=== PATIENT | female | born 1955 | race Caucasian/White ===

== ENCOUNTER 2022-10-19 22:44 | Inpatient (IN) | payer MEDICARE, SELFPAY ==
--- NOTE | 2022-10-19 07:48 | ECG_ITS ---
APPROVED REPORT Exam: Resting ECG HR:83 bpm ECG Measurements Heart Rate 83 AXES DE 157 P 66 QRSd 88 QRS 15 QT 407 T 15 QTc 447 Conclusion SINUS RHYTHM NORMAL ECG UNCONFIRMED REPORT Electronically signed by : Saleem Mg MD 10/20/2022 09:22:44
[2022-10-19 22:38] VITALS: BP 160/93; PULSE 89; RESP 17; TEMP 36.4; O2SAT 91
[2022-10-19 22:42] VITALS: BP 153/92; PULSE 105; RESP 20; O2SAT 95
[2022-10-19 22:46] VITALS: PULSE 100; BMI 28.9
--- NOTE | 2022-10-19 23:03 | XR_ITS ---
PROCEDURE INFORMATION: Exam: XR Chest Exam date and time: 10/19/2022 11:10 PM Age: 67 years old Clinical indication: Condition or disease; Lung condition and disease; Hypoxia; Patient HX: Former smoker TECHNIQUE: Imaging protocol: Radiologic exam of the chest. Views: 1 view. COMPARISON: No relevant prior studies available. FINDINGS: Lungs: Unremarkable. No consolidation. Pleural spaces: Unremarkable. No pleural effusion. No pneumothorax. Heart/Mediastinum: Unremarkable. No cardiomegaly. Vasculature: Unremarkable. Bones/joints: Unremarkable. IMPRESSION: No acute findings.
[2022-10-19 23:05] VITALS: O2SAT 94
--- NOTE | 2022-10-19 23:15 | PC.NURSE ---
pt arrived to floor via stretcher @[id number]
[2022-10-19 23:30] VITALS: BP 150/80; PULSE 84; RESP 18; O2SAT 94
--- NOTE | 2022-10-19 23:46 | EXP.HP ---
History of Present Illness *Admission Date: 10/19/22 *Reason for visit:: NSTEMI *History of present illness: This is a 67-year-old female with no significant past medical history who presents as a transfer from [facility] for further evaluation of NSTEMI. She reportedly presented to the outside hospital yesterday for complaints feeling generally unwell. She was diagnosed at that time with influenza. She was treated with DuoNeb, steroids and Tamiflu and discharged home. She presented back to the outside hospital today with complaints of dyspnea on exertion and orthopnea that is not typical to her baseline. She denies any past medical history but states that she is also not seen a doctor for a physical in some time. She does report half pack a day smoking history but has not had a cigarette since last Sunday. She was also noted at the outside hospital to have significant hypertension with systolic above 200. She only endorses orthopnea and dyspnea on exertion with any movement but denies chest pain, palpitations, fever. Emergency department work-up at outside hospital significant for elevated high-sensitivity troponin of 500 with uptrend to 700. BNP of 326, chest x-ray and CT pulmonary scan negative for any edema, effusion or PE. She does have a mild EUGENE with creatinine of 1.3, likely undiagnosed CKD. No ischemia noted on EKG, mild T wave inversions in V3 Due to the above-mentioned complaints, she was transferred here for further evaluation management. Cardiology was consulted prior to her transfer here and agrees with admission. She is admitted to the hospitalist service.. [facility] Disclaimer: The information contained in this section may have been updated after the patient was seen, as this information can be updated by other users. Surgical History H/O knee surgery History of tubal ligation Family History Other Diabetes Family history of acute congestive heart failure Family history of myocardial infarction Lung cancer Social History Smoking Status: Current every day smoker alcohol intake: never current occupational status: retired Travel in the last 8 weeks: None Review of Systems Constitutional Constitutional: Reports chills and Reports fatigue Eyes Eyes: Reports system reviewed and no additional complaints, except as documented ENT Ears, Nose, Mouth, and Throat: Reports system reviewed and no additional complaints, except as documented *Cardiovascular Cardiovascular: Reports system reviewed and no additional complaints, except as documented *Respiratory Respiratory: Reports system reviewed and no additional complaints, except as documented *Gastrointestinal Gastrointestinal: Reports system reviewed and no additional complaints, except as documented *Genitourinary Genitourinary: Reports system reviewed and no additional complaints, except as documented *Musculoskeletal Musculoskeletal: Reports system reviewed and no additional complaints, except as documented Integumentary/Breasts Skin/Breast: Reports system reviewed and no additional complaints, except as documented *Neurologic Neurologic: Reports system reviewed and no additional complaints, except as documented Endocrine Endocrine: Reports fatigue Meds Home Medications and Allergies Home Medications Medication Instructions Recorded Confirmed Type ascorbic acid (vitamin C) 500 mg 500 mg PO DAILY Supplement 10/19/22 10/19/22 History tablet (Vitamin C) aspirin 81 mg capsule 81 mg PO DAILY Blood thinner 10/19/22 10/19/22 History multivitamin 1 tab PO DAILY Supplement 10/19/22 10/19/22 History New Prescriptions to Start Prescriptions: Allergies Allergy/AdvReac Type Severity Reaction Status Date / Time No Known Allergies Allergy Verified 10/19/22 23:03 Exam Data
[2022-10-19 23:58] LABS: Coronavirus 19, PCR Not Detected (NotDetected); Influenza B, PCR Not Detected (NotDetected)
[2022-10-19 23:59] LABS: Basophils % 0.3 % (0.1-2.0); Eosinophils % 0.3 % (0.1-12.0); Hematocrit 38.5 % (37.0-47.0); Hemoglobin 12.4 g/dL (12.2-16.2); Lymphocytes # 1.2 K/mm3 (0.7-4.5); Lymphocytes % 9.4 % (10-50); Mean Corpuscular HGB Conc 32.2 g/dL (31.8-35.4); Mean Corpuscular Hemoglobin 29.9 pg (27.0-31.2); Mean Corpuscular Volume 92.8 fl (81-99); Mean Platelet Volume 8.6 fl (7.4-10.4); Monocytes # 0.3 K/mm3 (0.1-1.0); Monocytes % 2.3 % (1.7-9.3); Neutrophils # 10.8 K/mm3 (1.8-7.8); Neutrophils % 87.8 % (37.0-80.0); Platelet Count 931 K/mm3 (142-424); Red Blood Count 4.15 M/mm3 (4.20-5.40); Red Cell Distribution Width 13.6 % (11.5-17.5); White Blood Count 12.3 K/mm3 (4.8-10.8)
[2022-10-20] VITALS (19 sets, daily range): BP systolic 103–148; BP diastolic 50–76; PULSE 57–86; RESP 16–22; TEMP 36.3–36.7; O2SAT 93–100; BMI 28.5
--- NOTE | 2022-10-20 | IR_ITS ---
APPROVED REPORT Patient Location: Inpatient Administrative And Program Specialist: MILLIE Oscar RT (R) PROCEDURES Left heart catheterization Left ventriculogram Selective coronary angiogram INDICATION Acute non-ST ovation myocardial infarction Informed consent was obtained prior to the procedure. COMPLICATIONS None Estimated Blood Loss: Less than 10 ml TECHNIQUE One percent lidocaine used to anesthetize the right anterior aspect of the wrist. The right radial artery was accessed via the Seldinger technique. A 6 Macedonian sheath was placed in the right radial artery. 2.5 mg of verapamil, 800 mcg of nitroglycerin, 1mg Lidocaine and 5000 U Heparin were given through the arterial sheath. The papa catheter was also used to perform selective coronary angiogram. At the end of the procedure the sheath was removed good hemostasis was achieved using Traclet band, patient was transferred to the postop holding area in stable condition. ANGIOGRAPHIC RESULTS The left main artery Normal The left anterior descending artery Normal The circumflex artery Normal The right coronary artery Large dominant with proximal mild vascular ectasia The GAUTHIER ventriculogram reveals Not performed The left ventricular end-diastolic pressure Not measured IMPRESSION Mild vascular ectasia in the proximal dominant right coronary which is clinically insignificant with remaining coronary arteries being normal Likely mild form of myocarditis secondary to acute viral illness PLAN 1. Supportive care 2. Check echocardiogram to better evaluate ejection fraction Electronically signed by : Spenser Erickson MD 10/20/2022 12:10:35
[2022-10-20 00:02] LABS: MANUAL DIFFERENTIAL MANUAL DIFFERENTIAL (MANUAL DIFF)
[2022-10-20 00:07] LABS: Alanine Aminotransferase 46 U/L (12-78); Albumin Level 4.5 g/dl (3.5-5.0); Albumin/Globulin Ratio 1.4 (1.1-1.8); Alkaline Phosphatase 102 U/L (38-126); Anion Gap 18.1 mEq/L (5-15); Aspartate Amino Transferase 48 U/L (14-36); Bilirubin,Total 0.2 mg/dl (0.2-1.3); Blood Urea Nitrogen 16 mg/dl (7-17); Calcium 9.6 mg/dl (8.4-10.2); Carbon Dioxide 21 mmol/L (22.0-30.0); Chloride 101 mmol/L (98-107); Chol/HDL Ratio 4.2 (1-3.5); Cholesterol 173 mg/dl (140-200); Estimated Glomerular Filt Rate 45 ml/min (>60); GFR (African American) 54 ML/MIN (>60); Globulin 3.2 g/dL (1.3-3.2); Glucose 188 mg/dl (74-100); HDL Cholesterol 41 mg/dl (40-60); Potassium 4.1 mmoL/L (3.5-5.1); Sodium 136 mmol/L (136-145); Total Protein,Serum 7.7 g/dl (6.3-8.2); Triglycerides 148 mg/dl (30-150); VLDL Cholesterol 30 mg/dL (0-40)
[2022-10-20 00:12] LABS: D-Dimer 0.63 ug/mL (0.0-0.5); Hemoglobin A1C 5.3 % (4.0-6.0)
[2022-10-20 00:17] LABS: Direct LDL Cholesterol 83.31 mg/dL (100-129)
[2022-10-20 00:20] LABS: Influenza A, PCR Detected (NotDetected)
[2022-10-20 00:21] LABS: NT Pro Brain Natriuretic Pep. 7680 pg/mL (0-125)
[2022-10-20 00:23] LABS: Troponin I 0.49 ng/ml (0.00-0.034)
[2022-10-20 00:48] LABS: Lymphocytes % 12 % (10-50); Monocytes % 3 % (2-9); Neutrophils % 85 % (42-76); Platelet Estimate Marked Increase; RBC Morphology Normal; Total Cells Counted 100
[2022-10-20 03:03] LABS: Microscopic, Urine URINE MICROSCOPIC (MICROSCOPIC)
[2022-10-20 03:18] LABS: Appearance,Urine CLEAR (Clear); Bilirubin,Urine Negative (Negative); Blood, Urine Negative (Negative); Color,Urine YELLOW (Yellow); Glucose,Urine (UA) Negative (Negative); Ketones,Urine Negative (Negative); Leukocyte Esterase,Urine TRACE (Negative); Nitrate,Urine Negative (Negative); PH,Urine 5.5 (5.0-8.5); Protein,Urine Negative (Negative); Urobilinogen,Urine 0.2 EU/dl (0.2)
[2022-10-20 03:29] LABS: Troponin I 0.37 ng/ml (0.00-0.034)
[2022-10-20 03:40] LABS: Bacteria,Urine Trace /lpf; WBC,Urine Occasional #/hpf (0-3)
--- NOTE | 2022-10-20 04:10 | PC.NURSE ---
Pt BP has remained stable this shift. Nitro paste in place. She states that her soa has improved overnight. She has voided per BSC with 1400 ml out thus far. She is currently on 2L O2 NC with sats low to mid 90s. She is currently NPO. call light within reach.
[2022-10-20 05:56] LABS: Basophils # 0.1 K/mm3 (0-0.2); Basophils % 0.4 % (0.1-2.0); Eosinophils # 0.1 K/mm3 (0.0-0.4); Eosinophils % 0.5 % (0.1-12.0); Hematocrit 36.6 % (37.0-47.0); Hemoglobin 11.7 g/dL (12.2-16.2); Lymphocytes # 1.4 K/mm3 (0.7-4.5); Lymphocytes % 11.7 % (10-50); Mean Corpuscular HGB Conc 32.1 g/dL (31.8-35.4); Mean Corpuscular Hemoglobin 30.5 pg (27.0-31.2); Mean Corpuscular Volume 94.8 fl (81-99); Mean Platelet Volume 8.8 fl (7.4-10.4); Monocytes # 0.5 K/mm3 (0.1-1.0); Monocytes % 4.1 % (1.7-9.3); Neutrophils # 10.1 K/mm3 (1.8-7.8); Neutrophils % 83.2 % (37.0-80.0); Platelet Count 869 K/mm3 (142-424); Red Blood Count 3.85 M/mm3 (4.20-5.40); Red Cell Distribution Width 13.6 % (11.5-17.5); White Blood Count 12.2 K/mm3 (4.8-10.8)
[2022-10-20 06:04] LABS: Chloride 103 mmol/L (98-107); Potassium 4.2 mmoL/L (3.5-5.1); Sodium 138 mmol/L (136-145)
[2022-10-20 06:06] LABS: Alanine Aminotransferase 30 U/L (12-78); Albumin Level 3.9 g/dl (3.5-5.0); Albumin/Globulin Ratio 1.3 (1.1-1.8); Alkaline Phosphatase 86 U/L (38-126); Anion Gap 14.2 mEq/L (5-15); Aspartate Amino Transferase 36 U/L (14-36); Bilirubin,Total 0.2 mg/dl (0.2-1.3); Blood Urea Nitrogen 18 mg/dl (7-17); Calcium 9.3 mg/dl (8.4-10.2); Carbon Dioxide 25 mmol/L (22.0-30.0); Creatinine Clearance Estimated 48 mL/min (50-200); Estimated Glomerular Filt Rate 41 ml/min (>60); GFR (African American) 49 ML/MIN (>60); Glucose 127 mg/dl (74-100); Magnesium 1.8 mg/dl (1.6-2.3); Total Protein,Serum 6.9 g/dl (6.3-8.2)
[2022-10-20 06:07] LABS: Phosphorous 3.2 mg/dl (2.5-4.5)
[2022-10-20 06:26] LABS: Troponin I 0.33 ng/ml (0.00-0.034)
--- NOTE | 2022-10-20 06:31 | PC.NURSE ---
Critical lab value troponin 0.33 reported to Mirielle Meier NP
[2022-10-20 06:38] LABS: Thyroid Stimulating Hormone 0.93 uIU/mL (0.465-4.68)
[2022-10-20 07:02] LABS: Free T4 (Free Thyroxine) 1.02 ng/dl (0.78-2.19)
--- NOTE | 2022-10-20 07:25 | HMH.PHAINT1 ---
Pharmacy Intervention Comments: MEDICATION RECONCILIATION COMPLETED ON PATIENT USING EXTERNAL FILL HISTORY FROM PHARMACY. -ASHLEY LAROSE, EMELID
--- NOTE | 2022-10-20 09:33 | EXP.CARD.CON ---
History of Present Illness History of Present Illness Consult date: 10/20/22 Requesting physician: Jorge Lorenzo Consult reason: shortness of breath Chief complaint: SOA History of present illness: This is a 67-year-old white female who was transferred here from [facility] secondary to a non-ST elevation myocardial infarction. The patient reports that she presented to [facility] on Sunday after taking a shower and being significantly short of breath which was very unusual for her. She states that she was diagnosed with influenza and started on steroids, Tamiflu and duo nebs. She states that she was sent home and felt fine the rest of that day. On she states that she took Tamiflu that morning and around on she took steroids and her symptoms significantly worsened. She states that she was short of breath with rest and it was worsened with exertion and also had associated orthopnea. She stated that nothing was really helping to improve her symptoms which again was unusual for her. She denied any chest pain or pressure. She went back to the emergency department and a high-sensitivity troponin was obtained and positive. Dr. Erickson was contacted and the patient was transferred here to [facility]. Her troponin is also elevated here this morning. She states that she is still having intermittent episodes of shortness of breath. She denies any chest pain or pressure. She denies any lower extremity edema. She denies any fever, chills, nausea, vomiting, diarrhea. The patient does report that when she went to the hospital on Sunday her blood pressure was 200s/100s in the emergency department there. She states that they did get her blood pressure down and she has had slight elevations in her blood pressure since that time. [facility] Disclaimer: The information contained in this section may have been updated after the patient was seen, as this information can be updated by other users. Medical History EUGENE (acute kidney injury) COPD (chronic obstructive pulmonary disease) case management patient Family history of heart disease HTN (hypertension) Influenza NSTEMI (non-ST elevated myocardial infarction) Tobacco user Surgical History H/O knee surgery History of tubal ligation Family History Other Diabetes Family history of acute congestive heart failure Family history of myocardial infarction Lung cancer Social History Smoking Status: Current every day smoker alcohol intake: never current occupational status: retired Travel in the last 8 weeks: None Review of Systems Review of Systems Review of systems:: pertinent systems reviewed and negative unless documented below Constitutional Constitutional: Reports system reviewed and no additional complaints, except as documented Eyes Eyes: Reports system reviewed and no additional complaints, except as documented ENT Ears, Nose, Mouth, and Throat: Reports system reviewed and no additional complaints, except as documented *Cardiovascular Cardiovascular: Reports system reviewed and no additional complaints, except as documented, Reports dyspnea, Reports dyspnea on exertion and Reports orthopnea *Respiratory Respiratory: Reports system reviewed and no additional complaints, except as documented, Denies chest congestion, Denies cough, Reports dyspnea and Reports dyspnea on exertion *Gastrointestinal Gastrointestinal: Reports system reviewed and no additional complaints, except as documented *Genitourinary Genitourinary: Reports system reviewed and no additional complaints, except as documented *Musculoskeletal Musculoskeletal: Reports system reviewed and no additional complaints, except as documented Integumentary/Breasts Skin/Breast: Reports system reviewed and no lara
--- NOTE | 2022-10-20 12:52 | PC.NURSE ---
pt off unit from [id number] with slab stripper
--- NOTE | 2022-10-20 14:33 | EXP.DC.SUM ---
General Admission date:: 10/19/22 Discharge date: 10/20/22 HPI HPI HPI: This is a 67-year-old female with a significant history of cigarette smoking 1 pack/day for 40 years. She reports no past medical history for cardiovascular disease. She presents as a transfer from [facility] for further evaluation of NSTEMI. She reportedly presented to the outside hospital yesterday for complaints feeling generally unwell. She was diagnosed at that time with influenza. She was treated with DuoNeb, steroids and Tamiflu and discharged home. She presented back to the outside hospital today with complaints of dyspnea on exertion and orthopnea that is not typical to her baseline. She denies any past medical history but states that she is also not seen a doctor for a physical in some time. She does report 1 pack a day smoking history but has not had a cigarette since last Sunday. She was also noted at the outside hospital to have significant hypertension with systolic above 200. She only endorses orthopnea and dyspnea on exertion with any movement but denies chest pain, palpitations, fever. Emergency department work-up at outside hospital significant for elevated high-sensitivity troponin of 500 with uptrend to 700. BNP of 326, chest x-ray and CT pulmonary scan negative for any edema, effusion or PE. She does have a mild EUGENE with creatinine of 1.3, likely undiagnosed CKD. No ischemia noted on EKG, mild T wave inversions in V3. Her platelet count on presentation was greater than 900 consistent with essential thrombocytosis. Her red blood cell count was normal and her hemoglobin is 11.7 with an MCV of 95. Due to the above-mentioned complaints, she was transferred here for further evaluation management. Cardiology was consulted prior to her transfer here and agrees with admission. She is admitted to the hospitalist service. Hospital Course Hospital Course Hospital Course: The patient was admitted to the medical unit with telemetry monitoring. Cardiology was consulted. Laboratory studies were trended including her platelet count that trended downward from 931 to 869 after fluid resuscitation. Her creatinine remained stable and her electrolytes were normal. Her hemoglobin A1c was normal at 5.3%. Her troponin trend remained flat. She tolerated her beta-jose therapy well with no adverse events and reported no further chest pain. Cardiology recommended left heart cath which identified no interventional disease. Her differential diagnoses for NSTEMI includes the possibility of viral induced thrombosis from her essential thrombocytosis. Her 2 daughters were present on day of discharge and we discussed the importance of seeing a manufacturing team member for essential thrombocytosis evaluation, JAK2 testing, possible bone marrow biopsy and discussions concerning hydroxyurea therapy for her presentation to [facility]. She will continue with an aspirin daily and follow-up with cardiology as scheduled. We have discussed stroke symptomatology and reviewed FAST with the importance of seeking immediate medical attention. She is advised to discontinue smoking and seek evaluation from her PCP concerning COPD and current treatment strategies. The patient voices understanding. I spent 35 minutes in [id number] time with the patient and nursing staff concerning the discharge process. We discussed the admitting diagnoses and hospital course. We discussed identified improvement and the patient's desire to be discharged. We reviewed inpatient studies and imaging. The patient voiced understanding on the importance of follow-up with her primary care provider and research home economist. She will seek an appointment with a local manufacturing team member. The patient plans to be compliant with the medication regimen prescribed, tobacco cessation and follow-up appointments. She understands that she can return to the emergency department with any sudden changes or concerns. Exam Data for Last
--- NOTE | 2022-10-20 16:02 | P.CONPHA_ITS ---
Pharmacy Intervention Comments: DISCHARGE MEDICATION COUNSELING PROVIDED. DISCUSSED STARTING METOPROLOL SUCCINATE 25 MG TABLETS DAILY, BETA KRYSTIAN FOR BP/HEART RATE. MAY CAUSE DIZZINESS, LIGHTHEADEDNESS, SLOWED HEART RATE, HEADACHE. MAY EXPERIENCE AROUND DOSE CHANGES, WILL LOWER BP, PATIENT STATES SHE WILL MONITOR BP AT HOME. MASSIEL TAYLOR VERBALIZED NO QUESTIONS AT THIS TIME.
--- NOTE | 2022-10-20 16:38 | PC.NURSE ---
RX for albuterol inhaler called in for pt at this time per MD orders
--- NOTE | 2022-10-20 16:40 | PC.NURSE ---
pt is 96% on ra, able to ambulate in room with SRNA. pt is stable on feet. advised of symptoms of stroke per MD order. advised if pt becomes more short of air to seek further treatment in er
--- NOTE | 2022-10-24 13:56 | CARE MANAGER ---
Contacted patient related to hospital discharge. She states she is doing better and has follow up appointment with cardiology tomorrow. She denies questions or concerns. SRAVAN Maria
== END 2022-10-20 17:00 | disposition home or self-care (01) | DRG 281 ==
PROVIDERS: Internal Medicine; Nurse Practitioner Acute Care; Admitting Provider Family Medicine; Visit Provider Family Medicine
DX: I21.4 Non-ST elevation (NSTEMI) myocardial infarction (principal); N17.9 Acute kidney failure, unspecified; J11.1 Influenza due to unidentified influenza virus with other respiratory manifestations; I10 Essential (primary) hypertension; J44.9 Chronic obstructive pulmonary disease, unspecified; Z82.49 Family history of ischemic heart disease and other diseases of the circulatory system; F17.210 Nicotine dependence, cigarettes, uncomplicated; I25.10 Atherosclerotic heart disease of native coronary artery without angina pectoris
CPT/HCPCS: 36415; 71045; 80053; 80061; 81001; 83036; 83605; 83735; 83880; 84100; 84439; 84443; 84484; 85007; 85025; 85378; 93005; 93306; 93458; 99152; C1725; C1769; C9803; J1644; Q9967; U0003; U0005

== ENCOUNTER → 2022-10-31 10:30 | Outpatient (CLI) | payer MEDICARE, SELFPAY ==
[2022-10-31 11:44] LABS: Anion Gap 11.8 mEq/L (5-15); Blood Urea Nitrogen 10 mg/dl (7-17); Carbon Dioxide 28 mmol/L (22.0-30.0); Chloride 102 mmol/L (98-107); Estimated Glomerular Filt Rate 41 ml/min (>60); GFR (African American) 49 ML/MIN (>60); Glucose 97 mg/dl (74-100); Potassium 4.8 mmoL/L (3.5-5.1); Sodium 137 mmol/L (136-145)
== END ==
PROVIDERS: Visit Provider Physician Assistant
DX: I10 Essential (primary) hypertension (principal); I25.10 Atherosclerotic heart disease of native coronary artery without angina pectoris; J44.9 Chronic obstructive pulmonary disease, unspecified; Z72.0 Tobacco use
CPT/HCPCS: 36415; 80048

== ENCOUNTER 2023-02-28 18:23 | Emergency (ER) | payer MEDICARE, SELFPAY ==
[2023-02-28 18:51] VITALS: BMI 28.3
[2023-02-28 18:52] VITALS: BP 214/101; PULSE 85; RESP 16; TEMP 36.8; O2SAT 97; BMI 28.3
--- NOTE | 2023-02-28 18:53 | PC.NURSE ---
MD to bedside to evaluate patient. pt has swelling noted to left hand and wrist. pt states my hand and wrist is tingling because of the swelling. pulses noted.
--- NOTE | 2023-02-28 18:55 | XR_ITS ---
PROCEDURE INFORMATION: Exam: XR Left Forearm Exam date and time: 02/28/2023 7:43 PM Age: 68 years old Clinical indication: Injury or trauma; Fall; Blunt trauma (contusions or hematomas); Arm, lower; Left TECHNIQUE: Imaging protocol: Radiologic exam of the left forearm. Views: 2 views. COMPARISON: No relevant prior studies available. FINDINGS: Bones/joints: Subtle transverse lucency of the scaphoid better evaluated on the left wrist radiographs. Soft tissues: Severe soft tissue swelling of the left hand. IMPRESSION: 1. Subtle transverse lucency of the scaphoid better evaluated on the left wrist radiographs. Recommend further evaluation with left per CT. 2. Severe soft tissue swelling of the left hand.
--- NOTE | 2023-02-28 18:55 | XR_ITS ---
PROCEDURE INFORMATION: Exam: XR Left Wrist Exam date and time: 02/28/2023 7:43 PM Age: 68 years old Clinical indication: Injury or trauma; Fall; Blunt trauma (contusions or hematomas); Wrist; Left TECHNIQUE: Imaging protocol: Radiologic exam of the left wrist. Views: 3 or more views. COMPARISON: No relevant prior studies available. FINDINGS: Bones/joints: Subtle transverse lucency of the scaphoid waist may represent nondisplaced fracture versus overlying shadows. Soft tissues: Severe soft tissue swelling of the hand. IMPRESSION: Subtle transverse lucency of the scaphoid waist may represent nondisplaced fracture versus overlying shadows. Recommend further evaluation with CT of the left wrist.
--- NOTE | 2023-02-28 18:55 | XR_ITS ---
PROCEDURE INFORMATION: Exam: XR Left Hand Exam date and time: 02/28/2023 7:43 PM Age: 68 years old Clinical indication: Injury or trauma; Fall; Blunt trauma (contusions or hematomas); Hand; Left TECHNIQUE: Imaging protocol: Radiologic exam of the left hand. Views: 3 or more views. COMPARISON: No relevant prior studies available. FINDINGS: Bones/joints: See Soft tissues finding. Soft tissues: Severe soft tissue swelling of the hand without acute osseous abnormality. IMPRESSION: Severe soft tissue swelling of the hand without acute osseous abnormality.
--- NOTE | 2023-02-28 18:57 | CT_ITS ---
PROCEDURE INFORMATION: Exam: CT Cervical Spine Without Contrast Exam date and time: 02/28/2023 7:50 PM Age: 68 years old Clinical indication: Injury or trauma; Fall TECHNIQUE: Imaging protocol: Computed tomography of the cervical spine without contrast. Radiation optimization: All CT scans at this facility use at least one of these dose optimization techniques: automated exposure control; mA and/or kV adjustment per patient size (includes targeted exams where dose is matched to clinical indication); or iterative reconstruction. REPORTING DATA: Count of CT and Cardiac NM exams in prior 12 months: This patient has received [address] and 0 known cardiac nuclear medicine studies in the 12 months prior to the current study. COMPARISON: CT FACIAL BONES WO CON 02/28/2023 7:48 PM FINDINGS: Bones/joints: BelowNear anatomic alignment. No acute fracture. Multilevel degenerative changes are present. No severe spinal canal stenosis. Lungs: Lung apices are normal. Soft tissues: Unremarkable. IMPRESSION: No acute osseous injury.
--- NOTE | 2023-02-28 18:57 | CT_ITS ---
PROCEDURE INFORMATION: Exam: CT Head Without Contrast Exam date and time: 02/28/2023 7:46 PM Age: 68 years old Clinical indication: Injury or trauma; Fall TECHNIQUE: Imaging protocol: Computed tomography of the head without contrast. Radiation optimization: All CT scans at this facility use at least one of these dose optimization techniques: automated exposure control; mA and/or kV adjustment per patient size (includes targeted exams where dose is matched to clinical indication); or iterative reconstruction. REPORTING DATA: Count of CT and Cardiac NM exams in prior 12 months: This patient has received [address] and 0 known cardiac nuclear medicine studies in the 12 months prior to the current study. COMPARISON: CT FACIAL BONES WO CON 02/28/2023 7:48 PM FINDINGS: Brain: Normal. No hemorrhage. Unremarkable white matter. No mass effect. Cerebral ventricles: No ventriculomegaly. Paranasal sinuses: Visualized sinuses are unremarkable. No fluid levels. Mastoid air cells: Moderate right mastoid effusion. Bones/joints: Unremarkable. No acute fracture. Soft tissues: Moderate left inferior frontal and superior periorbital scalp hematoma. IMPRESSION: No acute intracranial abnormality.
--- NOTE | 2023-02-28 18:57 | CT_ITS ---
PROCEDURE INFORMATION: Exam: CT Maxillofacial Without Contrast Exam date and time: 02/28/2023 7:48 PM Age: 68 years old Clinical indication: Injury or trauma; Fall TECHNIQUE: Imaging protocol: Computed tomography of the face without contrast. Radiation optimization: All CT scans at this facility use at least one of these dose optimization techniques: automated exposure control; mA and/or kV adjustment per patient size (includes targeted exams where dose is matched to clinical indication); or iterative reconstruction. REPORTING DATA: Count of CT and Cardiac NM exams in prior 12 months: This patient has received [address] and 0 known cardiac nuclear medicine studies in the 12 months prior to the current study. COMPARISON: CT HEAD/BRAIN WO CON 02/28/2023 7:46 PM FINDINGS: Orbital cavities: Orbits are normal. Globes are unremarkable. Bones/joints: No acute fracture. Paranasal sinuses: Normal. No air-fluid levels. Soft tissues: Moderate left inferior frontal and superior periorbital scalp hematoma. Dental: Patient is edentulous. IMPRESSION: Moderate left inferior frontal and superior periorbital scalp hematoma. No acute facial fracture.
[2023-02-28 19:29] LABS: Basophils # 0.1 K/mm3 (0-0.2); Basophils % 0.6 % (0.1-2.0); Eosinophils # 0.2 K/mm3 (0.0-0.4); Eosinophils % 1.5 % (0.1-12.0); Hematocrit 34.5 % (37.0-47.0); Hemoglobin 10.9 g/dL (12.2-16.2); Lymphocytes # 2.3 K/mm3 (0.7-4.5); Lymphocytes % 18.6 % (10-50); Mean Corpuscular HGB Conc 31.6 g/dL (31.8-35.4); Mean Corpuscular Hemoglobin 30.8 pg (27.0-31.2); Mean Corpuscular Volume 97.5 fl (81-99); Mean Platelet Volume 8.2 fl (7.4-10.4); Monocytes # 0.7 K/mm3 (0.1-1.0); Monocytes % 5.4 % (1.7-9.3); Neutrophils # 9.1 K/mm3 (1.8-7.8); Neutrophils % 73.8 % (37.0-80.0); Red Blood Count 3.54 M/mm3 (4.20-5.40); Red Cell Distribution Width 13.7 % (11.5-17.5); White Blood Count 12.3 K/mm3 (4.8-10.8)
[2023-02-28 19:34] LABS: Alanine Aminotransferase 26 U/L (12-78); Albumin Level 4.4 g/dl (3.5-5.0); Albumin/Globulin Ratio 1.3 (1.1-1.8); Alkaline Phosphatase 73 U/L (38-126); Anion Gap 12.5 mEq/L (5-15); Aspartate Amino Transferase 35 U/L (14-36); Bilirubin,Total 0.3 mg/dl (0.2-1.3); Blood Urea Nitrogen 27 mg/dl (7-17); Carbon Dioxide 29 mmol/L (22.0-30.0); Chloride 103 mmol/L (98-107); Creatinine Clearance Estimated 43 mL/min (50-200); Estimated Glomerular Filt Rate 37 ml/min (>60); GFR (African American) 45 ML/MIN (>60); Globulin 3.3 g/dL (1.3-3.2); Glucose 135 mg/dl (74-100); Potassium 4.5 mmoL/L (3.5-5.1); Sodium 140 mmol/L (136-145); Total Protein,Serum 7.7 g/dl (6.3-8.2)
[2023-02-28 19:36] LABS: Activated Partial Thrombo Time 29.1 seconds (22.8-30.6); INR 0.98 (0.9-1.1); Prothrombin Time 10.6 seconds (10.1-12.5)
[2023-02-28 19:37] LABS: Platelet Count 1075 K/mm3 (142-424)
--- NOTE | 2023-02-28 19:42 | HMH.EDGENADL ---
Discharge Plan Disposition Patient Disposition: Home, Self-Care Condition: Good Prescriptions Prescriptions: No Action albuterol sulfate 90 mcg/actuation HFA aerosol inhaler 2 puff inhalation Q4-6H Label Comments: INHALE 2 PUFFS BY MOUTH EVERY 4 HOURS irbesartan 150 mg tablet 150 mg PO DAILY Qty: 30 2RF aspirin 81 mg Capsule 81 mg PO DAILY multivitamin Tablet 1 tab PO DAILY ascorbic acid (vitamin C) [Vitamin C] 500 mg Tablet 500 mg PO DAILY cholecalciferol (vitamin D3) [Vitamin D3] 125 mcg (5,000 unit) Tablet 125 mcg PO DAILY metoprolol succinate 25 mg Tablet Extended Release 24 Hr 25 mg PO DAILY Qty: 30 0RF Referrals Follow up/Referrals: Provider,Referral, [Primary Care Provider] - See instructions Clinical Impressions Clinical Impression: Upper extremity injury Instructions Patient Instructions: DI for Hand Injury Discharge ED Provider: Darrell Kwan General Adult HPI <Darrell Kwan MD - Last Filed: 02/28/23 20:26> General Chief complaint: Fall Stated complaint: [id number] Fall LT arm forehead inj Time Seen by Provider: 02/28/23 18:30 Mode of Arrival: Ambulatory Source of Information: Patient Limitations: No Limitations Description of Symptoms (Recalled from ER Triage Doc. by RN): pt reports approx 30 mins [employer] pt was picking limbs up in the yard and placing them in the trashcan. pt leaned over to far and fell into the trashcan. pt has knot on left eyebrown. pt also presents with left wrist pain, swelling, laceration. pt does have pulse and sensation. no blood thinners. History of Present Illness HPI narrative: This is a 68-year-old female with history of hypertension, CAD currently on daily aspirin, COPD presenting with left upper extremity pain. Patient states that she was picking up sticks just prior to arrival when she fell onto an outstretched hand. She bumped her forehead as well. Denies loss of consciousness. Hand started swelling and she had difficulty moving it, so she came to the ER for further evaluation. Denies numbness/tingling/weakness, but movement is significantly limited secondary to pain and swelling. Denies any other trauma, neck or back pain, vision changes, or any other concerns. Currently, pain is severe, 8 out of 10, does not radiate, made worse by trying to range fingers. Related Data Home Medications Medication Instructions Recorded Confirmed ascorbic acid (vitamin C) 500 mg 500 mg PO DAILY Supplement 10/19/22 11/28/22 tablet (Vitamin C) aspirin 81 mg capsule 81 mg PO DAILY HEART HEALTH 10/19/22 11/28/22 multivitamin 1 tab PO DAILY Supplement 10/19/22 11/28/22 cholecalciferol (vitamin D3) 125 125 mcg PO DAILY Supplement 10/20/22 11/28/22 mcg (5,000 unit) tablet (Vitamin D3) albuterol sulfate 90 mcg/actuation 2 puff inhalation Q4-6H 10/25/22 11/28/22 aerosol inhaler Previous Rx's Medication Instructions Recorded metoprolol succinate 25 mg 25 mg PO DAILY #30 tabs 10/20/22 tablet,extended release 24 hr irbesartan 150 mg tablet 150 mg PO DAILY #30 tabs 01/16/23 Allergies Allergy/AdvReac Type Severity Reaction Status Date / Time No Known Allergies Allergy Verified 02/28/23 18:56 <Reagan Garland (ED)MD - Last Filed: 03/01/23 06:12> General Source of Information: Relative and Medical Record [facility] <Darrell Kwan MD - Last Filed: 02/28/23 20:26> [facility] Disclaimer: The information contained in this section may have been updated after the patient was seen, as this information can be updated by other users. Medical History EUGENE (acute kidney injury) COPD (chronic obstructive pulmonary disease) case management patient Family history of heart disease HTN (hypertension) Influenza NSTEMI (non-ST elevated myocardial infarction) Tobacco user Surgical History H/O knee surgery History of tubal ligation Family History (Reviewed 11/28/22 @ 1
--- NOTE | 2023-02-28 20:23 | CT_ITS ---
PROCEDURE INFORMATION: Exam: CT Left Upper Extremity Without Contrast, Wrist Exam date and time: 02/28/2023 8:55 PM Age: 68 years old Clinical indication: Injury or trauma and abnormal findings; Fall; Abnormal imaging study of the limbs; Additional info: Fall, concern for wrist FX TECHNIQUE: Imaging protocol: Computed tomography of the left upper extremity without contrast. Exam focused on the wrist. Radiation optimization: All CT scans at this facility use at least one of these dose optimization techniques: automated exposure control; mA and/or kV adjustment per patient size (includes targeted exams where dose is matched to clinical indication); or iterative reconstruction. REPORTING DATA: Count of CT and Cardiac NM exams in prior 12 months: This patient has received [address] and 0 known cardiac nuclear medicine studies in the 12 months prior to the current study. COMPARISON: CR XR WRIST LT MIN 3V 02/28/2023 7:43 PM FINDINGS: Bones/joints: No fractures. Joint spaces are well maintained. Soft tissues: Significant soft tissue swelling involving the dorsal aspect of the left hand. IMPRESSION: Significant soft tissue swelling involving the dorsal aspect of the left hand. No CT evidence of acute osseous abnormality.
--- NOTE | 2023-02-28 20:23 | CT_ITS ---
PROCEDURE INFORMATION: Exam: CT Left Upper Extremity Without Contrast, Hand Exam date and time: 02/28/2023 8:53 PM Age: 68 years old Clinical indication: Injury or trauma and abnormal findings; Fall; Abnormal imaging study of the limbs; Additional info: Fall, concern for scaphoid TECHNIQUE: Imaging protocol: Computed tomography of the left upper extremity without contrast. Exam focused on the hand. Radiation optimization: All CT scans at this facility use at least one of these dose optimization techniques: automated exposure control; mA and/or kV adjustment per patient size (includes targeted exams where dose is matched to clinical indication); or iterative reconstruction. REPORTING DATA: Count of CT and Cardiac NM exams in prior 12 months: This patient has received [address] and 0 known cardiac nuclear medicine studies in the 12 months prior to the current study. COMPARISON: CR XR HAND LT MIN 3V 02/28/2023 7:43 PM FINDINGS: Bones/joints: No fractures. Joint spaces are well maintained. Soft tissues: Significant soft tissue swelling involving the dorsal aspect of the left hand. IMPRESSION: Significant soft tissue swelling involving the dorsal aspect of the left hand. No CT evidence of acute osseous abnormality.
[2023-02-28 20:44] LABS: Creatine Kinase 49 U/L (30-135)
[2023-02-28 22:41] VITALS: BP 124/72; PULSE 80; RESP 20; TEMP 36.8; O2SAT 96
== END 2023-02-28 22:45 | disposition home or self-care (01) ==
PROVIDERS: Emergency Provider Emergency Medicine
DX: S61.512A Laceration without foreign body of left wrist, initial encounter (principal); S09.8XXA Other specified injuries of head, initial encounter; W19.XXXA Unspecified fall, initial encounter; Z87.891 Personal history of nicotine dependence; Z23 Encounter for immunization
CPT/HCPCS: 70450; 70486; 72125; 73090; 73110; 73130; 73200; 80053; 82550; 85025; 85610; 85730; 90471; 90715; 96360; 96365; 96372; 96374; 99285

== ENCOUNTER → 2023-03-13 08:51 | Outpatient (CLI) | payer MEDICARE, SELFPAY ==
--- NOTE | 2023-03-13 09:03 | CA_ITS ---
FINAL REPORT CLINICAL HISTORY: HTN,EX SMOKER FINDINGS: Aorta velocity: 200.5 cm/sec Right kidney: 9.3 cm. No evidence of hydronephrosis or mass. Right intrarenal RI: 0.73 Right renal artery velocity: 163 cm/sec. Right RAR (Renal artery-Aortic Ratio): 0.82 Left Kidney: 9.5 cm. No evidence of hydronephrosis or mass. Left intrarenal RI: 0.76 Left renal artery velocity: 176 cm/sec. Left RAR (Renal Artery-Aortic Ratio): 0.88 IMPRESSION: No evidence of significant renal artery stenosis. CT angiogram or postcontrast MR angiogram would be more sensitive for evaluation of possible renal artery stenosis. Reviewed, Interpreted and Dictated by Tulio Welch MD Transcribed by Arelis Soriano Authenticated and . [facility]
--- NOTE | 2023-03-13 09:33 | US_ITS ---
FINAL REPORT TECHNIQUE: Sonographic images were obtained of the retroperitoneum. CLINICAL HISTORY: HYPERTENSION--GIDDINESS FINDINGS: The right kidney measures 8.6 cm. The left kidney measures 8.4 cm. There is no evidence of renal mass or hydronephrosis. There is bilateral renal cortical thinning. The spleen measures 12.2 cm. IMPRESSION: Bilateral renal cortical thinning. No acute process. Reviewed, Interpreted and Dictated by Tulio Welch MD Transcribed by Lamont Ordonez Authenticated and [facility]
== END ==
PROVIDERS: PCP Family Medicine; Visit Provider Physician Assistant
DX: E78.5 Hyperlipidemia, unspecified (principal); I10 Essential (primary) hypertension; I25.10 Atherosclerotic heart disease of native coronary artery without angina pectoris; R42 Dizziness and giddiness; R60.0 Localized edema; Z72.0 Tobacco use
CPT/HCPCS: 76770; 93976

== ENCOUNTER → 2023-04-02 09:09 | Outpatient (CLI) | payer MEDICARE, SELFPAY ==
[2023-04-02 10:40] LABS: Anion Gap 13.8 mEq/L (5-15); Blood Urea Nitrogen 34 mg/dl (7-17); Calcium 9.5 mg/dl (8.4-10.2); Carbon Dioxide 29 mmol/L (22.0-30.0); Chloride 101 mmol/L (98-107); Estimated Glomerular Filt Rate 32 ml/min (>60); GFR (African American) 39 ML/MIN (>60); Glucose 99 mg/dl (74-100); Potassium 5.8 mmoL/L (3.5-5.1); Sodium 138 mmol/L (136-145)
== END ==
PROVIDERS: PCP Family Medicine; Visit Provider Nurse Practitioner
DX: E78.5 Hyperlipidemia, unspecified (principal); I10 Essential (primary) hypertension; I25.10 Atherosclerotic heart disease of native coronary artery without angina pectoris; R42 Dizziness and giddiness; R60.0 Localized edema; Z72.0 Tobacco use
CPT/HCPCS: 36415; 80048

== ENCOUNTER → 2023-04-04 07:04 | Outpatient (CLI) | payer MEDICARE, SELFPAY ==
--- NOTE | 2023-04-04 07:12 | CT_ITS ---
FINAL REPORT TECHNIQUE: Axial CT images of the abdomen were obtained without contrast. Coronal reformatted images were also obtained.This study was performed with techniques to keep radiation doses as low as reasonably achievable (ALARA). Individualized dose reduction techniques using automated exposure control or adjustment of mA and/or kV according to the patient''s size were employed. CLINICAL HISTORY: uncontrolled HTN since october. FINDINGS: There is mild left base atelectasis. The liver has an unremarkable appearance, without evidence of mass. The pancreas appears normal. The spleen size is within normal limits. There is a 13 mm left adrenal nodule which does not have the typical appearance of an adenoma on noncontrast imaging. There are several less than 3 mm nonobstructing renal stones. There is moderate vascular calcification. There is no evidence of adenopathy. No abnormal fluid collection is seen. No localized inflammatory processes identified. IMPRESSION: Left adrenal nodule as detailed above. Adrenal mass protocol CT may be helpful. Bilateral nephrolithiasis. Reviewed, Interpreted and Dictated by Trevon Fish III, MD Transcribed by Anita Luque Authenticated and [facility]
[2023-04-11 00:10] LABS: Dopamine, Ur, 24hr 61 ug/24 hr (0-510); Dopamine, Urine 68 ug/L (Undefined); Epinephrine, U, 24hr 0 ug/24 hr (0-20); Epinephrine, Urine <1 ug/L (Undefined); Norepinephrine, Ur 21 ug/L (Undefined); Norepinephrine,U,24h 19 ug/24 hr (0-135); VMA, Urine 2.8 mg/L (Undefined); VMA, Urine, 24hr 2.5 mg/24 hr (0.0-7.5)
== END ==
PROVIDERS: PCP Family Medicine; Visit Provider Physician Assistant
DX: D35.00 Benign neoplasm of unspecified adrenal gland (principal); E27.8 Other specified disorders of adrenal gland; I10 Essential (primary) hypertension
CPT/HCPCS: 74150; 82384; 84585

== ENCOUNTER → 2023-05-07 15:18 | Outpatient (CLI) | payer MEDICARE, SELFPAY ==
[2023-05-07 17:53] LABS: Basophils # 0.1 K/mm3 (0-0.2); Basophils % 0.4 % (0.1-2.0); Eosinophils # 0.2 K/mm3 (0.0-0.4); Eosinophils % 1.6 % (0.1-12.0); Hemoglobin 10.1 g/dL (12.2-16.2); Lymphocytes # 2.2 K/mm3 (0.7-4.5); Lymphocytes % 18.1 % (10-50); Mean Corpuscular HGB Conc 31.6 g/dL (31.8-35.4); Mean Corpuscular Hemoglobin 30.5 pg (27.0-31.2); Mean Corpuscular Volume 96.6 fl (81-99); Mean Platelet Volume 9.6 fl (7.4-10.4); Monocytes # 0.7 K/mm3 (0.1-1.0); Monocytes % 5.9 % (1.7-9.3); Neutrophils % 74.1 % (37.0-80.0); Platelet Count 911 K/mm3 (142-424); Red Blood Count 3.31 M/mm3 (4.20-5.40); White Blood Count 12.1 K/mm3 (4.8-10.8)
[2023-05-07 19:16] LABS: Alanine Aminotransferase 30 U/L (12-78); Albumin Level 4.5 g/dl (3.5-5.0); Alkaline Phosphatase 101 U/L (38-126); Anion Gap 19.6 mEq/L (5-15); Aspartate Amino Transferase 30 U/L (14-36); Bilirubin,Indirect 0.4 mg/dL (0.0-0.9); Bilirubin,Total 0.4 mg/dl (0.2-1.3); Bilirubin,Unconjugated 0.4 mg/dL (0.0-1.1); Blood Urea Nitrogen 22 mg/dl (7-17); Calcium 9.1 mg/dl (8.4-10.2); Carbon Dioxide 26 mmol/L (22.0-30.0); Chloride 98 mmol/L (98-107); Chol/HDL Ratio 4.3 (1-3.5); Cholesterol 217 mg/dl (140-200); Estimated Glomerular Filt Rate 34 ml/min (>60); GFR (African American) 42 ML/MIN (>60); Glucose 83 mg/dl (74-100); HDL Cholesterol 51 mg/dl (40-60); Magnesium 2.1 mg/dl (1.6-2.3); Potassium 5.6 mmoL/L (3.5-5.1); Sodium 138 mmol/L (136-145); Total Protein,Serum 7.8 g/dl (6.3-8.2); Triglycerides 200 mg/dl (30-150); VLDL Cholesterol 40 mg/dL (0-40)
[2023-05-07 19:29] LABS: Direct LDL Cholesterol 109.34 mg/dL (100-129)
[2023-05-07 19:32] LABS: Free T4 (Free Thyroxine) 1.16 ng/dl (0.78-2.19)
[2023-05-07 19:51] LABS: Thyroid Stimulating Hormone 2.69 uIU/mL (0.465-4.68)
== END ==
PROVIDERS: PCP Family Medicine; Visit Provider Nurse Practitioner Family
DX: E27.8 Other specified disorders of adrenal gland (principal); E78.5 Hyperlipidemia, unspecified; I10 Essential (primary) hypertension; I25.10 Atherosclerotic heart disease of native coronary artery without angina pectoris; R42 Dizziness and giddiness; R60.0 Localized edema; Z72.0 Tobacco use
CPT/HCPCS: 36415; 80048; 80061; 80076; 83735; 84439; 84443; 85025

== ENCOUNTER → 2023-05-18 10:21 | Outpatient (CLI) | payer MEDICARE, SELFPAY ==
--- NOTE | 2023-05-18 10:22 | CT_ITS ---
FINAL REPORT TECHNIQUE: Pre- and postcontrast images of the abdomen were performed by computed tomography. This study was performed with techniques to keep radiation doses as low as reasonably achievable (ALARA). Individualized dose reduction techniques using automated exposure control or adjustment of mA and/or kV according to the patient's size were employed. CLINICAL HISTORY: adrenal hyperplasia FINDINGS: The lung bases are clear. The liver is normal in size and attenuation. The spleen is unremarkable. There is a 10 mm low-attenuation left adrenal nodule consistent with adenoma. The pancreas is unremarkable. There are less than 3 mm bilateral nonobstructing renal stones. There is mild bilateral renal cortical thinning. Small bilateral renal cysts are identified. IMPRESSION: Bilateral nonobstructing renal stones. Left adrenal nodule consistent with adenoma. Reviewed, Interpreted and Dictated by Trevon Fish III, MD Transcribed by Anita Luque Authenticated and [facility]
== END ==
PROVIDERS: PCP Family Medicine; Visit Provider Nurse Practitioner Family
DX: E27.8 Other specified disorders of adrenal gland (principal)
CPT/HCPCS: 74170; Q9967

== ENCOUNTER → 2023-06-01 17:04 | Outpatient (CLI) | payer MEDICARE, SELFPAY ==
[2023-06-01 16:45] LABS: Basophils # 0.1 K/mm3 (0-0.2); Basophils % 0.5 % (0.1-2.0); Eosinophils # 0.2 K/mm3 (0.0-0.4); Eosinophils % 1.6 % (0.1-12.0); Hematocrit 32.8 % (37.0-47.0); Hemoglobin 10.2 g/dL (12.2-16.2); Lymphocytes # 1.8 K/mm3 (0.7-4.5); Lymphocytes % 17.4 % (10-50); Mean Corpuscular Hemoglobin 30.8 pg (27.0-31.2); Mean Corpuscular Volume 99.3 fl (81-99); Mean Platelet Volume 11.3 fl (7.4-10.4); Monocytes # 0.7 K/mm3 (0.1-1.0); Monocytes % 6.9 % (1.7-9.3); Neutrophils # 7.7 K/mm3 (1.8-7.8); Neutrophils % 73.5 % (37.0-80.0); Platelet Count 788 K/mm3 (142-424); Red Cell Distribution Width 14.4 % (11.5-17.5); White Blood Count 10.4 K/mm3 (4.8-10.8)
[2023-06-01 16:51] LABS: Chloride 101 mmol/L (98-107); Potassium 5.6 mmoL/L (3.5-5.1); Sodium 139 mmol/L (136-145)
[2023-06-01 16:54] LABS: Blood Urea Nitrogen 32 mg/dl (7-17); Estimated Glomerular Filt Rate 32 ml/min (>60); GFR (African American) 39 ML/MIN (>60)
[2023-06-01 16:55] LABS: Anion Gap 13.6 mEq/L (5-15); Carbon Dioxide 30 mmol/L (22.0-30.0); Glucose 92 mg/dl (74-100)
== END ==
PROVIDERS: PCP Family Medicine; Visit Provider Family Medicine
DX: I25.10 Atherosclerotic heart disease of native coronary artery without angina pectoris (principal); E87.5 Hyperkalemia
CPT/HCPCS: 80048; 85025

== ENCOUNTER → 2023-06-27 09:19 | Outpatient (POV) | payer MEDICARE, SELFPAY | PROVIDERS: Visit Provider Specialist/Technologist | DX: Z00.00 Encounter for general adult medical examination without abnormal findings (principal) ==

== ENCOUNTER → 2023-07-02 16:51 | Outpatient (CLI) | payer MEDICARE, SELFPAY ==
[2023-07-02 16:56] LABS: Basophils % 0.4 % (0.1-2.0); Eosinophils # 0.1 K/mm3 (0.0-0.4); Eosinophils % 1.4 % (0.1-12.0); Hematocrit 33.3 % (37.0-47.0); Hemoglobin 10.1 g/dL (12.2-16.2); Lymphocytes # 1.8 K/mm3 (0.7-4.5); Lymphocytes % 18.2 % (10-50); Mean Corpuscular HGB Conc 30.4 g/dL (31.8-35.4); Mean Corpuscular Hemoglobin 31.3 pg (27.0-31.2); Mean Corpuscular Volume 103.2 fl (81-99); Monocytes # 0.7 K/mm3 (0.1-1.0); Monocytes % 7.3 % (1.7-9.3); Neutrophils # 7.1 K/mm3 (1.8-7.8); Neutrophils % 72.8 % (37.0-80.0); Platelet Count 685 K/mm3 (142-424); Red Blood Count 3.23 M/mm3 (4.20-5.40); Red Cell Distribution Width 15.8 % (11.5-17.5); Reticulocyte % (Auto) 2.2 % (0.9-3.2); White Blood Count 9.7 K/mm3 (4.8-10.8)
[2023-07-02 17:00] LABS: Anion Gap 13.1 mEq/L (5-15); Blood Urea Nitrogen 22 mg/dl (7-17); Carbon Dioxide 28 mmol/L (22.0-30.0); Chloride 104 mmol/L (98-107); Estimated Glomerular Filt Rate 37 ml/min (>60); GFR (African American) 45 ML/MIN (>60); Glucose 91 mg/dl (74-100); Potassium 5.1 mmoL/L (3.5-5.1); Sodium 140 mmol/L (136-145)
== END ==
PROVIDERS: PCP Family Medicine; Visit Provider Family Medicine
DX: D64.9 Anemia, unspecified (principal); I25.10 Atherosclerotic heart disease of native coronary artery without angina pectoris
CPT/HCPCS: 80048; 85025; 85044

== ENCOUNTER → 2023-09-13 10:51 | Outpatient (CLI) | payer MEDICARE, SELFPAY ==
--- NOTE | 2023-09-13 10:51 | US_ITS ---
FINAL REPORT CLINICAL HISTORY: claudication, HTN, Ex-smoker FINDINGS: COMPLETE ANKLE/BRACHIAL INDICES BILATERAL Ankle brachial indices were obtained. The right FE is 1.1. The left FE is 1.0. IMPRESSION: ABIs are within normal limits bilaterally. Reviewed, Interpreted and Dictated by Trevon Fish III, MD Transcribed by Anita Luque Authenticated and [facility]
== END ==
PROVIDERS: PCP Family Medicine; Visit Provider Nurse Practitioner Family
DX: I73.9 Peripheral vascular disease, unspecified (principal)
CPT/HCPCS: 93923

== ENCOUNTER 2024-03-21 18:00 | Outpatient (CLI) | payer MEDICARE, SELFPAY ==
[2024-03-21 16:49] LABS: Basophils # 0.1 K/mm3 (0-0.2); Basophils % 0.7 % (0.1-2.0); Eosinophils # 0.1 K/mm3 (0.0-0.4); Eosinophils % 1.2 % (0.1-12.0); Hematocrit 33.7 % (37.0-47.0); Hemoglobin 10.5 g/dL (12.2-16.2); Lymphocytes % 17.9 % (10-50); Mean Corpuscular HGB Conc 31.1 g/dL (31.8-35.4); Mean Corpuscular Hemoglobin 32.8 pg (27.0-31.2); Mean Corpuscular Volume 105.4 fl (81-99); Mean Platelet Volume 11.3 fl (7.4-10.4); Monocytes # 0.8 K/mm3 (0.1-1.0); Monocytes % 7.1 % (1.7-9.3); Neutrophils # 8.1 K/mm3 (1.8-7.8); Neutrophils % 73.2 % (37.0-80.0); Platelet Count 826 K/mm3 (142-424); Red Cell Distribution Width 15.3 % (11.5-17.5)
[2024-03-21 17:03] LABS: Alanine Aminotransferase 28 U/L (12-78); Albumin Level 4.2 g/dl (3.5-5.0); Albumin/Globulin Ratio 1.2 (1.1-1.8); Alkaline Phosphatase 86 U/L (38-126); Anion Gap 14.9 mEq/L (5-15); Aspartate Amino Transferase 61 U/L (14-36); Bilirubin,Total 0.4 mg/dl (0.2-1.3); Blood Urea Nitrogen 18 mg/dl (7-17); Calcium 9.9 mg/dl (8.4-10.2); Carbon Dioxide 30 mmol/L (22.0-30.0); Chloride 100 mmol/L (98-107); Chol/HDL Ratio 4.4 (1-3.5); Cholesterol 200 mg/dl (140-200); Estimated Glomerular Filt Rate 32 ml/min (>60); GFR (African American) 39 ML/MIN (>60); Globulin 3.4 g/dL (1.3-3.2); Glucose 90 mg/dl (74-100); HDL Cholesterol 45 mg/dl (40-60); Potassium 4.9 mmoL/L (3.5-5.1); Sodium 140 mmol/L (136-145); Total Protein,Serum 7.6 g/dl (6.3-8.2); Triglycerides 178 mg/dl (30-150); VLDL Cholesterol 36 mg/dL (0-40)
[2024-03-21 17:11] LABS: NT Pro Brain Natriuretic Pep. 724 pg/mL (0-125)
[2024-03-21 17:13] LABS: Direct LDL Cholesterol 115.51 mg/dL (100-129)
[2024-03-21 17:33] LABS: Thyroid Stimulating Hormone 3.03 uIU/mL (0.465-4.68)
== END 2024-03-21 23:59 | disposition home or self-care (01) ==
LOC: LAB.DROPOF 03-22 08:47
PROVIDERS: PCP Nurse Practitioner Family; Visit Provider Nurse Practitioner Family
DX: I11.0 Hypertensive heart disease with heart failure (principal); R60.0 Localized edema; E78.5 Hyperlipidemia, unspecified; I50.9 Heart failure, unspecified; Z87.891 Personal history of nicotine dependence
CPT/HCPCS: 80053; 80061; 83880; 84443; 85025

== ENCOUNTER 2024-04-01 08:04 | Outpatient (CLI) | payer MEDICARE, SELFPAY ==
--- NOTE | 2024-04-01 08:08 | XR_ITS ---
FINAL REPORT CLINICAL HISTORY: Lt Knee Pain COMPARISON: None FINDINGS: LEFT KNEE 3 views of the left knee were obtained. There is no acute fracture or dislocation. There is moderate medial compartment joint space narrowing. There is subchondral sclerosis consistent with osteoarthritis. Soft tissues are unremarkable. IMPRESSION: Degenerative changes without acute bony abnormality. Reviewed, Interpreted and Dictated by Tulio Welch MD Transcribed by Rosa Che Authenticated and [facility]
--- NOTE | 2024-04-01 08:08 | XR_ITS ---
FINAL REPORT CLINICAL HISTORY: Knee Pain COMPARISON: None FINDINGS: RIGHT KNEE 3 views of the right knee were obtained. There is no acute fracture or dislocation. There is moderate medial compartment joint space narrowing. There is subchondral sclerosis consistent with osteoarthritis. Soft tissues are unremarkable. IMPRESSION: Degenerative changes without acute bony abnormality. Reviewed, Interpreted and Dictated by Tulio Welch MD Transcribed by Rosa Che Authenticated and [facility]
== END 2024-04-01 23:59 | disposition home or self-care (01) ==
LOC: RAD 08:05
PROVIDERS: PCP Family Medicine; Visit Provider Orthopaedic Surgery
DX: M25.561 Pain in right knee (principal); M25.562 Pain in left knee
CPT/HCPCS: 73562

== ENCOUNTER 2024-04-24 09:51 | Outpatient (POV) | payer MEDICARE, SELFPAY ==
--- NOTE | 2024-04-24 12:06 | A.OFFVIS_ITS ---
HPI Data of Consult Patient: new to practice Consult date: 04/24/24 Requesting Physician: Abbie Meeks APRN Primary Care Provider: Rell Trores MD Consult Narrative Reason for consult: Bilateral knee pain History of present illness: Ms. Morse is a 69 year old female who presents today as a new patient. She is a referral from Artemio Meeks's office. Today she rates her pain a 5 out of 10. Patient states the pain is all in her bilateral knees and been going on for the last year or so. Patient does state that she ended up having to have bilateral knee surgery related to her patellas about 30 years ago and really did not have a whole lot of problems with these up until she started to have fluid around her heart. Patient states that that is been about the last year. She states the right knee is worse than the left and describes it as a chronic aching, throbbing sensation with popping and cracking. Patient states the pain interferes with her ability perform activities of daily living such as cooking and cleaning. Patient states that she did go to Dr. Meeks and he was stating that she needed knee replacement however recommended that she try genicular nerve blocks first. Patient states that her blood pressure was extremely high and due to that during his office visit he was not stating that she was a candidate for knee replacement at that time due to that factor. Patient states that she is interested in any help we may be able provide however she was not necessarily a fan of the nerve block IVF. Her Shakir has been reviewed and is appropriate. CC: Abbie Meeks APRN [facility] Disclaimer: The information contained in this section may have been updated after the patient was seen, as this information can be updated by other users. Medical History Edema Adrenal adenoma Cyst of tonsil No treatment necessary we will continue to monitor this Deviated septum Chronic otitis externa Tinnitus Adrenal hyperplasia Pheochromocytoma Edema of both lower extremities Dizziness HLD (hyperlipidemia) Coronary artery disease Family history of heart disease Tobacco user COPD (chronic obstructive pulmonary disease) case management patient HTN (hypertension) EUGENE (acute kidney injury) Influenza NSTEMI (non-ST elevated myocardial infarction) Surgical History History of tubal ligation H/O knee surgery Family History Other Diabetes Family history of acute congestive heart failure Family history of myocardial infarction Lung cancer Social History Smoking Status: Former smoker alcohol intake: never current occupational status: retired Travel in the last 8 weeks: None Review of Systems Review of Systems Review of systems:: pertinent systems reviewed and negative unless documented below Review of systems (narrative): Review of Systems: General: No recent weight changes, no fever, no sleep disturbances Respiratory: No cough, no shortness of air, no recurring pulmonary infections Cardiovascular/peripheral vascular: No chest pain, no palpitations, no edema, no shortness of breath Gastrointestinal: No new onset incontinence, normal bowel movements reported Genitourinary: No new onset incontinence Musculoskeletal: Bilateral knee pain Psychiatric: [Normal mood/affect] Neurological: [Denies weakness in extremities], [denies balance issues] Meds Home Medications and Allergies Home Medications Medication Instructions Recorded Confirmed Type ascorbic acid (vitamin C) 500 mg 500 mg PO DAILY Supplement 10/19/22 04/24/24 History tablet (Vitamin C) aspirin 81 mg capsule 81 mg PO DAILY HEART HEALTH 10/19/22 04/24/24 History cholecalciferol (vitamin D3) 125 125 mcg PO DAILY Supplement 10/20/22 04/24/24 History mcg (5,000 unit) tablet (Vitamin D3) amlodipine 2.5 mg tablet 2.5 mg PO DAILY High blood 04/16/24 04/24/24 Rx pressure #90 tabs furosemide 40 mg tablet 40 mg PO DAILY PRN edema 90 days 04/16/24 04/24/24 Rx #90 tabs irbesartan 300 mg tablet 300 mg PO DAILY #90 tabs 04/16/24 04/24/24 Rx metoprolol succinate 25 mg 25 mg PO DAILY #90 tabs 04/16/24 04/24/24 Rx tablet,extended release 24 hr omeprazole 20 mg capsule,delayed 20 mg PO QPM #90 caps 04/16/24 04/24/24 Rx release New Prescriptions to Start Prescriptions: Allergies Allergy/AdvReac Type Severity Reaction Status Date / Time No Known Allergies Allergy Verified 04/24/24 09:32 Objective Narrative: Physical Exam: General: Alert and oriented x3, no acute distress, pleasant and cooperative Lungs: Respirations even and unlabored, symmetrical chest expansion Eyes: PERRL Musculoskeletal: Flexion and extension of bilateral knees somewhat guarded secondary to pain, [antalgic gait noted] Neurological: Speech clear, no gross sensory deficit Additional findings Additional findings: FINDINGS: RIGHT KNEE 3 views of the right knee were obtained. There is no acute fracture or dislocation. There is moderate medial compartment joint space narrowing. There is subchondral sclerosis consistent with osteoarthritis. Soft tissues are unremarkable. IMPRESSION: Degenerative changes without acute bony abnormality. Reviewed, Interpreted and Dictated by Tulio Welch MD Transcribed by Rosa Che Authenticated and [facility] FINDINGS: LEFT KNEE 3 views of the left knee were obtained. There is no acute fracture or dislocation. There is moderate medial compartment joint space narrowing. There is subchondral sclerosis consistent with osteoarthritis. Soft tissues are unremarkable. IMPRESSION: Degenerative changes without acute bony abnormality. Reviewed, Interpreted and Dictated by Tulio Welch MD Transcribed by Rosa Che Authenticated and [facility] Assessment and Plan *Assessment and plan (1) Bilateral primary osteoarthritis of knee: Status: Acute Category: Medical Code(s): M17.0 - Bilateral primary osteoarthritis of knee Plan Patient is experiencing significant pain throughout her bilateral knees with limited range of motion. I have discussed with the patient unfortunately we cannot place the genicular nerve blocks as her insurance no longer covers these procedures. I have counseled her in future she may benefit from intra-articular knee injections as she has not tried this at this point. Will order the patient a compounded cream and follow-up with her in 1 month for reevaluation of symptoms and plan of care. Patient is agreeable to this plan. Patient has been instructed to contact the clinic with any concerns before the next appointment. Dr. Sigala has reviewed this note and agrees with this plan of care. This note was dictated using voice recognition software and make contain errors or omissions.
[2024-04-24 12:35] VITALS: BP 177/68; PULSE 67; RESP 18; O2SAT 100; BMI 35.0
== END 2024-04-24 23:59 | disposition home or self-care (01) ==
LOC: SC.PAIN 09:52
PROVIDERS: PCP Family Medicine; Visit Provider Nurse Practitioner Family
DX: M17.0 Bilateral primary osteoarthritis of knee (principal)
CPT/HCPCS: 99202; G0463

== ENCOUNTER 2024-05-22 10:35 | Outpatient (POV) | payer MEDICARE, SELFPAY ==
[2024-05-22 10:48] VITALS: BP 165/72; PULSE 79; RESP 16; O2SAT 97; BMI 33.1
--- NOTE | 2024-05-22 11:10 | EXP.PAIN.SOA ---
[facility] Disclaimer: The information contained in this section may have been updated after the patient was seen, as this information can be updated by other users. Medical History (Updated 05/22/24 @ 11:14 by Abbie Meeks APRN) Hearing difficulty Edema Adrenal adenoma Cyst of tonsil Deviated septum Chronic otitis externa Tinnitus Adrenal hyperplasia Pheochromocytoma Edema of both lower extremities Dizziness HLD (hyperlipidemia) Coronary artery disease Family history of heart disease Tobacco user COPD (chronic obstructive pulmonary disease) case management patient HTN (hypertension) EUGENE (acute kidney injury) Influenza NSTEMI (non-ST elevated myocardial infarction) Surgical History History of tubal ligation H/O knee surgery Family History Other Diabetes Family history of acute congestive heart failure Family history of myocardial infarction Lung cancer Social History Smoking Status: Former smoker alcohol intake: never current occupational status: other Travel in the last 8 weeks: None PM Subjective & Objective Subjective Subjective:: Patient is a pleasant 69-year-old female who presents today for follow-up. Today she rates her pain a 3 out of 10 however states that her pain will get progressively worse as she is up on her feet to a 5 or more. She does state that the right knee is worse than the left and that the left feels more manageable at this time. Patient does even states that last night she did not get a whole lot of sleep because she ended up possibly turning in bed causing her knee to cause sharp shooting pain and woke her up. Patient does states she still has all of her pain primarily in her bilateral knees but has noticed some additional low back pain when she has been standing at the sink or trying to cook. Patient does state the pain interferes with her ability to perform activities of daily living such as cooking and cleaning. Patient does also states she has been having a little right heel pain as well. Patient did state in the past she was told that she had a issue along the spine and that it would progressively worsen over time causing some pain. Patient did try the compounded cream and states it did help some. At her last visit we did discuss possible intra-articular knee injections and she does state that she is open to this option. Her Shakir has been reviewed and is appropriate. Review of Systems: General: No recent weight changes, no fever, no sleep disturbances Respiratory: No cough, no shortness of air, no recurring pulmonary infections Cardiovascular/peripheral vascular: No chest pain, no palpitations, no edema, no shortness of breath Gastrointestinal: No new onset incontinence, normal bowel movements reported Genitourinary: No new onset incontinence Musculoskeletal: Bilateral knee pain Psychiatric: [Normal mood/affect] Neurological: [Denies weakness in extremities], [denies balance issues] Pain at rest (0-10 scale): 5 Objective Objective:: Physical Exam: General: Alert and oriented x3, no acute distress, pleasant and cooperative Lungs: Respirations even and unlabored, symmetrical chest expansion Eyes: PERRL Musculoskeletal: Flexion and extension of right knee somewhat guarded secondary to pain, [antalgic gait noted] Neurological: Speech clear, no gross sensory deficit Has patient had previous pain injection?: No Conservative treatment options previously tried: Home exercise plan Length of treatment: Longer than 6 weeks Meds Home Medications and Allergies Home Medications Medication Instructions Recorded Confirmed Type ascorbic acid (vitamin C) 500 mg 500 mg PO DAILY Supplement 10/19/22 05/22/24 History tablet (Vitamin C) aspirin 81 mg capsule 81 mg PO DAILY HEART HEALTH 10/19/22 05/22/24 History cholecalciferol (vitamin D3) 125 125 mcg PO DAILY Supplement 10/20/22 05/22/24 History mcg (5,000 unit) tablet (Vitamin D3) amlodipine 2.5 mg tablet 2.5 mg PO DAILY High blood 04/16/24 05/22/24 Rx pressure #90 tabs furosemide 40 mg tablet 40 mg PO DAILY PRN edema 90 days 04/16/24 05/22/24 Rx #90 tabs irbesartan 300 mg tablet 300 mg PO DAILY #90 tabs 04/16/24 05/22/24 Rx metoprolol succinate 25 mg 25 mg PO DAILY #90 tabs 04/16/24 05/22/24 Rx tablet,extended release 24 hr omeprazole 20 mg capsule,delayed 20 mg PO QPM #90 caps 04/16/24 05/22/24 Rx release New Prescriptions to Start Prescriptions: Allergies Allergy/AdvReac Type Severity Reaction Status Date / Time No Known Allergies Allergy Verified 04/29/24 11:03 Assessment and Plan *Assessment and plan (1) Bilateral primary osteoarthritis of knee: Status: Acute Category: Medical Code(s): M17.0 - Bilateral primary osteoarthritis of knee (2) Low back pain: Status: Acute Qualifiers: Chronicity: acute Back pain laterality: bilateral Sciatica presence: without sciatica Qualified Code(s): M54.50 - Low back pain, unspecified Category: Medical Code(s): M54.50 - Low back pain, unspecified Plan Patient is continuing to experience significant pain in her bilateral knees however she states that the right is very severe. I have discussed with the patient that she may benefit from intra-articular knee injections. Risk and benefits were discussed with patient and she would like to proceed forward with this plan of care. At this time we will just do her right knee as this is the one that is giving her the most problems. Patient is agreeable to this plan of care. I will also send in a 2-week dose of tizanidine 4 mg at night. Patient has tried and failed conservative treatments including oral medication, heat and ice, topicals, continued at home stretching and exercise for longer than 6 weeks. Patient will be scheduled for a right knee intra-articular injection Patient has been instructed to contact the clinic with any concerns before the next appointment. Dr. Sigala has reviewed this note and agrees with this plan of care. This note was dictated using voice recognition software and make contain errors or omissions.
== END 2024-05-22 23:59 | disposition home or self-care (01) ==
PROVIDERS: PCP Family Medicine; Visit Provider Nurse Practitioner Family
DX: M17.0 Bilateral primary osteoarthritis of knee (principal); G89.29 Other chronic pain
CPT/HCPCS: 99212; G0463

== ENCOUNTER 2024-06-03 10:19 | Day surgery (SDC) | payer MEDICARE, SELFPAY ==
[2024-06-03 10:55] VITALS: BP 165/71; PULSE 89; RESP 18; TEMP 36.4; O2SAT 96; BMI 33.1
[2024-06-03 10:58] VITALS: BP 196/73; PULSE 72; RESP 18; O2SAT 98
[2024-06-03] MEDS: methylPREDNISolone ACETATE 80MG/ML VIAL 80 MG (10:58)
[2024-06-03] MEDS: LIDOCAINE 1% 5ML PF VIAL 5 ML (10:58)
[2024-06-03] MEDS: BUPIVACAINE 0.25% 10ML INJ 25 MG IJ (10:58)
[2024-06-03 11:00] VITALS: BP 196/73; PULSE 72; RESP 18; O2SAT 98
--- NOTE | 2024-06-03 11:07 | EXP.PAIN.PRO ---
Procedure Date: 06/03/24 Time: 11:00 Anesthesiologist:: Myles Whitfield CRNA Complications:: None Pre-procedure Diagnosis:: DJD right knee. Chronic right knee pain. Post-procedure Diagnosis:: Same. Indications for Procedure:: Patient is a very pleasant 69-year-old female comes our clinic today for right intra-articular knee injection of cortisone. Patient describes right knee pain as constant, dull, aching, sharp, stabbing. Patient reports pain intensifies significantly with flexion and extension. Ambulation is extremely painful. She rates her pain 9/10. Procedure Details:: Procedure Details: Bilateral intra-articular knee injection Informed consent was obtained risk and benefits of the procedure were explained to the patient. Patient was taken the procedure room right knee was prepped using ChloraPrep. A 25-gauge needle was used to inject 10 mL bupivacaine 0.25% and Depo-Medrol 40 mg into each knee. The patient tolerated the procedure well with no complications. Plan and Disposition:: Patient was discharged without incident.
[2024-06-03 11:15] VITALS: BP 135/75; PULSE 64; RESP 18; O2SAT 96
== END 2024-06-03 11:17 | disposition home or self-care (01) ==
PROVIDERS: PCP Family Medicine; Visit Provider Nurse Anesthetist, Certified Registered
DX: M25.561 Pain in right knee (principal); M17.11 Unilateral primary osteoarthritis, right knee
CPT/HCPCS: 20610; J1010

== ENCOUNTER 2024-06-18 11:09 | Outpatient (POV) | payer MEDICARE, SELFPAY ==
--- NOTE | 2024-06-18 11:21 | EXP.PAIN.SOA ---
[facility] Disclaimer: The information contained in this section may have been updated after the patient was seen, as this information can be updated by other users. Medical History (Updated 06/18/24 @ 11:31 by Abbie Meeks APRN) Hearing difficulty Edema Adrenal adenoma Cyst of tonsil Deviated septum Chronic otitis externa Tinnitus Adrenal hyperplasia Pheochromocytoma Edema of both lower extremities Dizziness HLD (hyperlipidemia) Coronary artery disease Family history of heart disease Tobacco user COPD (chronic obstructive pulmonary disease) case management patient HTN (hypertension) EUGENE (acute kidney injury) Influenza NSTEMI (non-ST elevated myocardial infarction) Surgical History History of tubal ligation H/O knee surgery Family History Other Diabetes Family history of acute congestive heart failure Family history of myocardial infarction Lung cancer Social History Smoking Status: Former smoker alcohol intake: never current occupational status: other Travel in the last 8 weeks: None PM Subjective & Objective Subjective Subjective:: Patient is a pleasant 69-year-old female who presents today for follow-up of right intra-articular knee injection. Today she rates her pain a 3 out of 10. Patient states she had at least 75% improvement following this injection. She states that overall she is doing really well. She does state that initially after having this injection done when she got home she got out of the vehicle and it popped and she was not really able to walk on it for about 2 days however that subsided and then she has had the improvement. Patient does state that the tizanidine we send in a 4 mg at night did seem to really help and she would like refills. Patient does also states she has been having a lot of leg spasms at night that do wake her up. Her Shakir has been reviewed and is appropriate. Review of Systems: General: No recent weight changes, no fever, no sleep disturbances Respiratory: No cough, no shortness of air, no recurring pulmonary infections Cardiovascular/peripheral vascular: No chest pain, no palpitations, no edema, no shortness of breath Gastrointestinal: No new onset incontinence, normal bowel movements reported Genitourinary: No new onset incontinence Musculoskeletal: Knee pain Psychiatric: [Normal mood/affect] Neurological: [Denies weakness in extremities], [denies balance issues] Pain at rest (0-10 scale): 3 Objective Objective:: Physical Exam: General: Alert and oriented x3, no acute distress, pleasant and cooperative Lungs: Respirations even and unlabored, symmetrical chest expansion Eyes: PERRL Musculoskeletal: Flexion and extension of right knee somewhat guarded secondary to pain, [antalgic gait noted] Neurological: Speech clear, no gross sensory deficit Has patient had previous pain injection?: Yes Percent improvement in pain since last injection: 75% Conservative treatment options previously tried: Home exercise plan Length of treatment: Longer than 6 weeks Meds Home Medications and Allergies Home Medications ?Medication ?Instructions ?Recorded ?Confirmed ?Type ascorbic acid (vitamin C) 500 mg 500 mg PO DAILY Supplement 10/19/22 05/22/24 History tablet (Vitamin C) aspirin 81 mg capsule 81 mg PO DAILY HEART HEALTH 10/19/22 05/22/24 History cholecalciferol (vitamin D3) 125 125 mcg PO DAILY Supplement 10/20/22 05/22/24 History mcg (5,000 unit) tablet (Vitamin D3) amlodipine 2.5 mg tablet 2.5 mg PO DAILY High blood 04/16/24 05/22/24 Rx pressure #90 tabs furosemide 40 mg tablet 40 mg PO DAILY PRN edema 90 days 04/16/24 05/22/24 Rx #90 tabs irbesartan 300 mg tablet 300 mg PO DAILY #90 tabs 04/16/24 05/22/24 Rx metoprolol succinate 25 mg 25 mg PO DAILY #90 tabs 04/16/24 05/22/24 Rx tablet,extended release 24 hr omeprazole 20 mg capsule,delayed 20 mg PO QPM #90 caps 04/16/24 05/22/24 Rx release tizanidine 4 mg tablet (Zanaflex) 4 mg PO HS #14 tabs 05/22/24 Rx New Prescriptions to Start Prescriptions: Allergies Allergy/AdvReac Type Severity Reaction Status Date / Time No Known Allergies Allergy Verified 04/29/24 11:03 Assessment and Plan *Assessment and plan (1) Right knee pain: Status: Acute Qualifiers: Chronicity: chronic Qualified Code(s): M25.561 - Pain in right knee; G89.29 - Other chronic pain Category: Medical Code(s): M25.561 - Pain in right knee Plan Patient has had significant improvement following her right knee intra-articular injection and does not require any additional injection therapy. Patient did state today that the injection did cost her $275 [id number] and that that was rather pricey when she is living on a fixed income. I have discussed with the patient that we can see whether or not we can work out something with financial services here at the hospital in future and that there is also the option of if we cannot get it any cheaper that we could send her to the [facility] for these injections in the future. We will follow-up with this at future visits. I will refill the patient's tizanidine 4 mg at bedtime and provide a 1 month supply of this medication. I will also send in a temporary dose of ropinirole 0.25 mg at bedtime for 2 weeks. Patient has been counseled to let our office know if this medication does help and that we will follow-up with her in 1 month for reevaluation of symptoms and plan of care. Patient has been instructed to contact the clinic with any concerns before the next appointment. Dr. Sigala has reviewed this note and agrees with this plan of care. This note was dictated using voice recognition software and make contain errors or omissions. All injections are used with Lidocaine or Bupivacaine and Depo Medrol.
[2024-06-18 12:06] VITALS: BP 165/60; PULSE 72; RESP 18; O2SAT 95; BMI 33.1
== END 2024-06-18 23:59 | disposition home or self-care (01) ==
PROVIDERS: PCP Family Medicine; Visit Provider Nurse Practitioner Family
DX: M25.561 Pain in right knee (principal); G89.29 Other chronic pain; I25.10 Atherosclerotic heart disease of native coronary artery without angina pectoris; I10 Essential (primary) hypertension; I25.2 Old myocardial infarction; Z87.891 Personal history of nicotine dependence
CPT/HCPCS: 99212; G0463

== ENCOUNTER 2024-08-25 10:00 | Outpatient (POV) | payer MEDICARE, SELFPAY ==
[2024-08-25 10:26] VITALS: BP 158/65; PULSE 78; RESP 16; O2SAT 97; BMI 35.0
--- NOTE | 2024-08-25 11:10 | A.OFFVIS_ITS ---
[facility] Disclaimer: The information contained in this section may have been updated after the patient was seen, as this information can be updated by other users. Medical History Hearing difficulty Edema Adrenal adenoma Cyst of tonsil No treatment necessary we will continue to monitor this Deviated septum Chronic otitis externa Tinnitus Adrenal hyperplasia Pheochromocytoma Edema of both lower extremities Dizziness HLD (hyperlipidemia) Coronary artery disease Family history of heart disease Tobacco user COPD (chronic obstructive pulmonary disease) case management patient HTN (hypertension) EUGENE (acute kidney injury) Influenza NSTEMI (non-ST elevated myocardial infarction) Surgical History History of tubal ligation H/O knee surgery Family History Other Diabetes Family history of acute congestive heart failure Family history of myocardial infarction Lung cancer Social History Smoking Status: Former smoker alcohol intake: never current occupational status: other Travel in the last 8 weeks: None PM Subjective & Objective Subjective Subjective:: Patient is a pleasant 69-year-old female who presents today for follow-up of right knee MRI. Today she rates her pain a 10 out of 10. Patient states that she still has constant pain regarding her right knee and does even feel like she is starting to have more pain on the left as well. Patient states that she feels like she is compensating for her right causing worsening pain on the opposite leg. Patient states that her right knee is constantly popping and cracking and does have chronic swelling throughout the knee. Patient states that even the simplest activity causes significant pain and disability. Patient has tried all kinds of anti-inflammatories along with other medications with no change as well as continued at home stretching exercise for longer than 12 weeks. Patient has had intra-articular knee injections that did provide improvement however only very temporary with her last injections doing 17 days of relief. Patient is managed with tizanidine 4 mg at bedtime from our office. She denies any side effects. Her Shakir has been reviewed and is appropriate. Review of Systems: General: No recent weight changes, no fever, no sleep disturbances Respiratory: No cough, no shortness of air, no recurring pulmonary infections Cardiovascular/peripheral vascular: No chest pain, no palpitations, no edema, no shortness of breath Gastrointestinal: No new onset incontinence, normal bowel movements reported Genitourinary: No new onset incontinence Musculoskeletal: Right knee pain Psychiatric: [Normal mood/affect] Neurological: [Denies weakness in extremities], [denies balance issues] Pain at rest (0-10 scale): 10 Objective Objective:: Physical Exam: General: Alert and oriented x3, no acute distress, pleasant and cooperative Lungs: Respirations even and unlabored, symmetrical chest expansion Eyes: PERRL Musculoskeletal: Flexion and extension of right knee somewhat guarded secondary to pain, [antalgic gait noted] Neurological: Speech clear, no gross sensory deficit MRI right knee without contrast [facility] August 19, 2024 Findings: Tricompartmental osteoarthritis include segments of full-thickness medial and patellofemoral compartment cartilage loss. Complex tear of the medial meniscus posterior horn and body includes near complete and possibly complete posterior root tear and extrusion of the body segment. Irregularity of the lateral meniscus at the posterior horn and root junction could reflect fraying/synovitis or partial tear. Mild quadriceps tendinosis. Small joint effusion and chronic, presumably degenerative synovitis. Chronic partial tear of the anterior cruciate ligament Has patient had previous pain injection?: No Conservative treatment options previously tried: Home exercise plan Length of treatment: Longer than 12 weeks Meds Home Medications and Allergies Home Medications ?Medication ?Instructions ?Recorded ?Confirmed ?Type ascorbic acid (vitamin C) 500 mg 500 mg PO DAILY Supplement 10/19/22 08/25/24 History tablet (Vitamin C) aspirin 81 mg capsule 81 mg PO DAILY HEART HEALTH 10/19/22 08/25/24 History cholecalciferol (vitamin D3) 125 125 mcg PO DAILY Supplement 10/20/22 08/25/24 History mcg (5,000 unit) tablet (Vitamin D3) furosemide 40 mg tablet 40 mg PO DAILY PRN edema 90 days 04/16/24 08/25/24 Rx #90 tabs irbesartan 300 mg tablet 300 mg PO DAILY #90 tabs 04/16/24 08/25/24 Rx metoprolol succinate 25 mg 25 mg PO DAILY #90 tabs 04/16/24 08/25/24 Rx tablet,extended release 24 hr omeprazole 20 mg capsule,delayed 20 mg PO QPM #90 caps 04/16/24 08/25/24 Rx release ropinirole 0.25 mg tablet 0.25 mg PO HS #14 tabs 06/18/24 08/25/24 Rx tizanidine 4 mg tablet (Zanaflex) 4 mg PO HS #90 tabs 07/23/24 08/25/24 Rx amlodipine 2.5 mg tablet 2.5 mg PO DAILY High blood 07/30/24 08/25/24 Rx pressure 30 days #30 tabs New Prescriptions to Start Prescriptions: Allergies Allergy/AdvReac Type Severity Reaction Status Date / Time No Known Allergies Allergy Verified 07/24/24 09:29 Assessment and Plan *Assessment and plan (1) Right knee pain: Status: Acute Qualifiers: Chronicity: chronic Qualified Code(s): M25.561 - Pain in right knee; G89.29 - Other chronic pain Category: Medical Code(s): M25.561 - Pain in right knee Plan Patient was reviewed over her MRI findings of her right knee. I have discussed due to the extent of her medial meniscus tear and cartilage loss along with other significant findings I do believe that she may benefit best from a total knee replacement. Patient does state that she did see orthopedics here and that the cost was ridiculous. Patient states she is on a very fixed income and cannot afford the additional visit cost. I have discussed with the patient that we can try and send her to an outside provider however I cannot guarantee with the office visit appointments would discharge. Patient acknowledges understanding and agrees with this plan of care. We will send her for evaluation by Vinod Rae of her chronic right knee pain. Patient was counseled to take her disc with her for this appointment and she is requesting her visit be done at the [place] location. We will send over a copy of her MRI as well. Patient will return to our clinic in 1 month for reevaluation of symptoms and plan of care. Patient has been instructed to contact the clinic with any concerns before the next appointment. Dr. Sigala has reviewed this note and agrees with this plan of care. This note was dictated using voice recognition software and make contain errors or omissions. All injections are used with Lidocaine or Bupivacaine and Depo Medrol.
== END 2024-08-25 23:59 | disposition home or self-care (01) ==
LOC: SC.PAIN 10:01
PROVIDERS: PCP Family Medicine; Visit Provider Nurse Practitioner Family
DX: M25.561 Pain in right knee (principal); G89.29 Other chronic pain
CPT/HCPCS: 99212; G0463

== ENCOUNTER 2024-09-25 10:15 | Outpatient (POV) | payer MEDICARE, SELFPAY ==
--- NOTE | 2024-09-25 10:21 | EXP.PAIN.SOA ---
[facility] Disclaimer: The information contained in this section may have been updated after the patient was seen, as this information can be updated by other users. Medical History Hearing difficulty Edema Adrenal adenoma Cyst of tonsil No treatment necessary we will continue to monitor this Deviated septum Chronic otitis externa Tinnitus Adrenal hyperplasia Pheochromocytoma Edema of both lower extremities Dizziness HLD (hyperlipidemia) Coronary artery disease Family history of heart disease Tobacco user COPD (chronic obstructive pulmonary disease) case management patient HTN (hypertension) EUGENE (acute kidney injury) Influenza NSTEMI (non-ST elevated myocardial infarction) Surgical History History of tubal ligation H/O knee surgery Family History Other Diabetes Family history of acute congestive heart failure Family history of myocardial infarction Lung cancer Social History Smoking Status: Former smoker alcohol intake: never current occupational status: other Travel in the last 8 weeks: None PM Subjective & Objective Subjective Subjective:: Patient is a pleasant 69-year-old female who presents today for follow-up. Today she rates her pain a 10 out of 10. Patient denies any new trauma or injury from her last visit. She does state that she has seen orthopedics regarding her right knee and they were recommending total knee replacements in the future. Patient states that she ended up seeing the PA and he does have concerns that she may have a blood clot in her knee.She is scheduled for an upcoming ultrasound of her right knee at [facility]. Patient does also state that they did discuss doing at least 1 more injection in her knee before going towards replacement. She states that they were looking at the first of next year for this procedure. She continues to have the chronic pain in the right knee with popping and cracking and does have chronic swelling. Patient states the pain constantly interferes with her ability perform activities of daily living such as cooking and cleaning. Patient has tried all kinds of anti-inflammatories along with other medications with no change as well as continued at home stretching exercise for longer than 12 weeks. Patient is managed with tizanidine 4 mg at bedtime from our office. She denies any side effects. Her Shakir has been reviewed and is appropriate. Review of Systems: General: No recent weight changes, no fever, no sleep disturbances Respiratory: No cough, no shortness of air, no recurring pulmonary infections Cardiovascular/peripheral vascular: No chest pain, no palpitations, no edema, no shortness of breath Gastrointestinal: No new onset incontinence, normal bowel movements reported Genitourinary: No new onset incontinence Musculoskeletal: Right knee pain Psychiatric: [Normal mood/affect] Neurological: [Denies weakness in extremities], [denies balance issues] Pain at rest (0-10 scale): 10 Objective Objective:: Physical Exam: General: Alert and oriented x3, no acute distress, pleasant and cooperative Lungs: Respirations even and unlabored, symmetrical chest expansion Eyes: PERRL Musculoskeletal: Flexion and extension of right knee somewhat guarded secondary to pain, [antalgic gait noted] Neurological: Speech clear, no gross sensory deficit Has patient had previous pain injection?: No Conservative treatment options previously tried: Home exercise plan Length of treatment: Longer than 12 weeks Meds Home Medications and Allergies Home Medications ?Medication ?Instructions ?Recorded ?Confirmed ?Type ascorbic acid (vitamin C) 500 mg 500 mg PO DAILY Supplement 10/19/22 08/25/24 History tablet (Vitamin C) aspirin 81 mg capsule 81 mg PO DAILY HEART HEALTH 10/19/22 08/25/24 History cholecalciferol (vitamin D3) 125 125 mcg PO DAILY Supplement 10/20/22 08/25/24 History mcg (5,000 unit) tablet (Vitamin D3) furosemide 40 mg tablet 40 mg PO DAILY PRN edema 90 days 04/16/24 08/25/24 Rx #90 tabs metoprolol succinate 25 mg 25 mg PO DAILY #90 tabs 04/16/24 08/25/24 Rx tablet,extended release 24 hr omeprazole 20 mg capsule,delayed 20 mg PO QPM #90 caps 04/16/24 08/25/24 Rx release ropinirole 0.25 mg tablet 0.25 mg PO HS #14 tabs 06/18/24 08/25/24 Rx tizanidine 4 mg tablet (Zanaflex) 4 mg PO HS #90 tabs 07/23/24 08/25/24 Rx amlodipine 2.5 mg tablet 2.5 mg PO DAILY High blood 09/18/24 10/14/24 Rx pressure 30 days #30 tabs irbesartan 300 mg tablet 300 mg PO DAILY #90 tabs 09/10/24 Rx New Prescriptions to Start Prescriptions: Allergies Allergy/AdvReac Type Severity Reaction Status Date / Time No Known Allergies Allergy Verified 07/24/24 09:29 Assessment and Plan *Assessment and plan (1) Right knee pain: Status: Acute Qualifiers: Chronicity: chronic Qualified Code(s): M25.561 - Pain in right knee; G89.29 - Other chronic pain Category: Medical Code(s): M25.561 - Pain in right knee Plan I did discuss with the patient in future we can always try nerve blocks for her right knee however with orthopedics starting to see her that I do not want to interfere with the possibility of prolonged getting the knee replacement. I have discussed with the patient that I will wait and see how her ultrasound and follow-up with their office goes. Patient will return to clinic in 1 month for reevaluation of symptoms and plan of care. Patient agrees with this. Patient has been instructed to contact the clinic with any concerns before the next appointment. Dr. Sigala has reviewed this note and agrees with this plan of care. This note was dictated using voice recognition software and make contain errors or omissions. All injections are used with Lidocaine or Bupivacaine and Depo Medrol.
[2024-09-25 11:43] VITALS: BP 164/68; PULSE 76; RESP 16; O2SAT 95; BMI 35.0
== END 2024-09-25 23:59 | disposition home or self-care (01) ==
LOC: SC.PAIN 10:15
PROVIDERS: PCP Family Medicine; Visit Provider Nurse Practitioner Family
DX: M25.561 Pain in right knee (principal); G89.29 Other chronic pain; Z73.89 Other problems related to life management difficulty
CPT/HCPCS: 99212; G0463

== ENCOUNTER 2024-10-23 10:31 | Outpatient (POV) | payer MEDICARE, SELFPAY ==
[2024-10-23 11:05] VITALS: BP 183/78; PULSE 78; RESP 14; O2SAT 98; BMI 35.0
--- NOTE | 2024-10-23 11:08 | A.OFFVIS_ITS ---
[facility] Disclaimer: The information contained in this section may have been updated after the patient was seen, as this information can be updated by other users. Medical History Hearing difficulty Edema Adrenal adenoma Cyst of tonsil No treatment necessary we will continue to monitor this Deviated septum Chronic otitis externa Tinnitus Adrenal hyperplasia Pheochromocytoma Edema of both lower extremities Dizziness HLD (hyperlipidemia) Coronary artery disease Family history of heart disease Tobacco user COPD (chronic obstructive pulmonary disease) case management patient HTN (hypertension) EUGENE (acute kidney injury) Influenza NSTEMI (non-ST elevated myocardial infarction) Surgical History History of tubal ligation H/O knee surgery Family History Other Diabetes Family history of acute congestive heart failure Family history of myocardial infarction Lung cancer Social History Smoking Status: Former smoker alcohol intake: never current occupational status: other Travel in the last 8 weeks: None PM Subjective & Objective Subjective Subjective:: Patient is a pleasant 69-year-old female who presents today for follow-up. Today she rates her pain a 10 out of 10. She does state that she is still having issues regarding her right knee and that she did go to [email or web address] for an ultrasound to verify that there was not any blood clots however she has not gotten the results. Patient is scheduled to see Reagan singh at [facility] later today for the results. She does state the pain is still an aching, throbbing sensation with popping and cracking and chronic swelling. She does state the pain continues to interfere with her daily activities of living such as cooking and cleaning or even simple ambulation. Patient states that she has started having more issues even on the left side with numbness and feels like it is because where she is altered how she even sleeps due to the right knee pain. Patient is currently managed with tizanidine 4 mg at bedtime from our office. She denies any side effects from this medication and feels like it does not cause drowsiness but does help. Her Shakir has been reviewed and is appropriate. Review of Systems: General: No recent weight changes, no fever, no sleep disturbances Respiratory: No cough, no shortness of air, no recurring pulmonary infections Cardiovascular/peripheral vascular: No chest pain, no palpitations, no edema, no shortness of breath Gastrointestinal: No new onset incontinence, normal bowel movements reported Genitourinary: No new onset incontinence Musculoskeletal: Right knee pain Psychiatric: [Normal mood/affect] Neurological: [Denies weakness in extremities], [denies balance issues] Pain at rest (0-10 scale): 10 Objective Objective:: Physical Exam: General: Alert and oriented x3, no acute distress, pleasant and cooperative Lungs: Respirations even and unlabored, symmetrical chest expansion Eyes: PERRL Musculoskeletal: Flexion and extension of right knee somewhat guarded secondary to pain, [antalgic gait noted] Neurological: Speech clear, no gross sensory deficit Has patient had previous pain injection?: No Conservative treatment options previously tried: Home exercise plan Length of treatment: Longer than 12 weeks Meds Home Medications and Allergies Home Medications ?Medication ?Instructions ?Recorded ?Confirmed ?Type ascorbic acid (vitamin C) 500 mg 500 mg PO DAILY Supplement 10/19/22 10/23/24 History tablet (Vitamin C) aspirin 81 mg capsule 81 mg PO DAILY HEART HEALTH 10/19/22 10/23/24 History cholecalciferol (vitamin D3) 125 125 mcg PO DAILY Supplement 10/20/22 10/23/24 History mcg (5,000 unit) tablet (Vitamin D3) furosemide 40 mg tablet 40 mg PO DAILY PRN edema 90 days 04/16/24 10/23/24 Rx #90 tabs metoprolol succinate 25 mg 25 mg PO DAILY #90 tabs 04/16/24 10/23/24 Rx tablet,extended release 24 hr omeprazole 20 mg capsule,delayed 20 mg PO QPM #90 caps 04/16/24 10/23/24 Rx release ropinirole 0.25 mg tablet 0.25 mg PO HS #14 tabs 06/18/24 10/23/24 Rx tizanidine 4 mg tablet (Zanaflex) 4 mg PO HS #90 tabs 07/23/24 10/23/24 Rx amlodipine 2.5 mg tablet 2.5 mg PO DAILY High blood 07/30/24 10/23/24 Rx pressure 30 days #30 tabs irbesartan 300 mg tablet 300 mg PO DAILY #90 tabs 09/10/24 10/23/24 Rx New Prescriptions to Start Prescriptions: Allergies Allergy/AdvReac Type Severity Reaction Status Date / Time No Known Allergies Allergy Verified 07/24/24 09:29 Assessment and Plan *Assessment and plan (1) Right knee pain: Status: Acute Qualifiers: Chronicity: chronic Qualified Code(s): M25.561 - Pain in right knee; G89.29 - Other chronic pain Category: Medical Code(s): M25.561 - Pain in right knee Plan Patient continues to have chronic pain throughout her right knee with very limited range of motion and chronic swelling and popping and cracking with ambulation. I did discuss with the patient again regarding the infrapatellar nerve block that we talked about at her last visit. I did drug and alcohol counsellor her that I do believe this would be beneficial to try however I want a make sure that orthopedics does not have any contraindications. I did discuss with the patient that we are currently scheduling out to 12 November and that if she does get the go ahead they are with [facility] today that she can call our office back and get scheduled for the right infrapatellar nerve block. Patient has continued conservative treatment including oral medication, heat and ice, topicals and continued at home stretching exercise for longer than 12 weeks. I will also change her tizanidine 4 mg to 3 times daily and provide a 1 month supply of this medication. Patient will be given a tentative 1 month follow-up. Patient agrees with this plan of care. Patient has been instructed to contact the clinic with any concerns before the next appointment. Dr. Sigala has reviewed this note and agrees with this plan of care. This note was dictated using voice recognition software and make contain errors or omissions. All injections are used with Lidocaine or Bupivacaine and Depo Medrol.
== END 2024-10-23 23:59 | disposition home or self-care (01) ==
PROVIDERS: PCP Family Medicine; Visit Provider Nurse Practitioner Family
DX: M25.561 Pain in right knee (principal); G89.29 Other chronic pain; Z73.89 Other problems related to life management difficulty
CPT/HCPCS: 99212; G0463

== ENCOUNTER 2025-01-21 09:53 | Outpatient (CLI) | payer MEDICARE, SELFPAY ==
[2025-01-21 10:13] LABS: Basophils # 0.1 K/mm3 (0-0.2); Basophils % 0.5 % (0.1-2.0); Eosinophils # 0.2 K/mm3 (0.0-0.4); Eosinophils % 1.2 % (0.1-12.0); Hematocrit 28.7 % (37.0-47.0); Hemoglobin 8.9 g/dL (12.2-16.2); Lymphocytes # 2.1 K/mm3 (0.7-4.5); Lymphocytes % 13.6 % (10-50); Mean Corpuscular Hemoglobin 32.2 pg (27.0-31.2); Mean Platelet Volume 9.6 fl (7.4-10.4); Monocytes % 6.3 % (1.7-9.3); Neutrophils # 11.7 K/mm3 (1.8-7.8); Neutrophils % 77.1 % (37.0-80.0); Platelet Count 946 K/mm3 (142-424); Red Blood Count 2.76 M/mm3 (4.20-5.40); Red Cell Distribution Width 14.1 % (11.5-17.5); White Blood Count 15.2 K/mm3 (4.8-10.8)
[2025-01-21 10:16] LABS: MANUAL DIFFERENTIAL MANUAL DIFFERENTIAL (MANUAL DIFF)
[2025-01-21 10:42] LABS: Lymphocytes % 9 % (10-50); Monocytes % 3 % (2-9); Neutrophils % 88 % (42-76); Total Cells Counted 100
[2025-01-21 10:43] LABS: Hypochromasia 1+; Platelet Estimate Marked Increase; RBC Morphology Normal
[2025-01-21 10:48] LABS: Albumin Level 4.5 g/dl (3.5-5.0); Chloride 107 mmol/L (98-107); Potassium 4.6 mmoL/L (3.5-5.1); Sodium 140 mmol/L (136-145)
[2025-01-21 10:51] LABS: Alanine Aminotransferase 18 U/L (12-78); Alkaline Phosphatase 95 U/L (38-126); Anion Gap 13.6 mEq/L (5-15); Aspartate Amino Transferase 23 U/L (14-36); Bilirubin,Indirect 0.3 mg/dL (0.0-0.9); Bilirubin,Total 0.3 mg/dl (0.2-1.3); Bilirubin,Unconjugated 0.3 mg/dL (0.0-1.1); Blood Urea Nitrogen 19 mg/dl (7-17); Calcium 10.4 mg/dl (8.4-10.2); Carbon Dioxide 24 mmol/L (22.0-30.0); Cholesterol 164 mg/dl (140-200); Estimated Glomerular Filt Rate 34 ml/min (>60); GFR (African American) 42 ML/MIN (>60); Glucose 127 mg/dl (74-100); Total Protein,Serum 7.1 g/dl (6.3-8.2); Triglycerides 204 mg/dl (30-150); VLDL Cholesterol 41 mg/dL (0-40)
[2025-01-21 10:52] LABS: HDL Cholesterol 33 mg/dl (40-60)
[2025-01-21 11:02] LABS: Direct LDL Cholesterol 88.99 mg/dL (100-129)
[2025-01-21 12:12] LABS: Free T4 (Free Thyroxine) 1.22 ng/dl (0.78-2.19)
[2025-01-21 12:24] LABS: Thyroid Stimulating Hormone 2.81 uIU/mL (0.465-4.68)
== END 2025-01-21 23:59 | disposition home or self-care (01) ==
LOC: LAB 09:54
PROVIDERS: PCP Family Medicine; Visit Provider Nurse Practitioner Family
DX: R60.0 Localized edema (principal); E87.5 Hyperkalemia; E78.5 Hyperlipidemia, unspecified; I25.10 Atherosclerotic heart disease of native coronary artery without angina pectoris; I10 Essential (primary) hypertension
CPT/HCPCS: 36415; 80048; 80061; 80076; 84439; 84443; 85007; 85025; 85027

== ENCOUNTER 2025-01-27 14:55 | Outpatient (CLI) | payer MEDICARE, SELFPAY ==
[2025-01-27 15:32] LABS: Reticulocyte % (Auto) 2.3 % (0.9-3.2)
[2025-01-27 18:21] LABS: Folate > 20.00 ng/mL
[2025-01-27 22:57] LABS: Iron 55 ug/dL (37-170)
[2025-01-27 23:07] LABS: Total Iron Binding Capacity 282 ug/dL (265-497)
[2025-01-27 23:36] LABS: Ferritin 109 ng/ml (11.1-264)
[2025-01-27 23:56] LABS: Lactate Dehydrogenase 262 U/L (313-618)
[2025-01-28 01:03] LABS: Vitamin B12 > 1000 pg/mL (239-931)
[2025-01-28 16:49] LABS: Haptoglobin 207 mg/dL (37-355)
[2025-01-29 15:01] LABS: Peripheral Smear Review Scanned Result
[2025-01-30 14:12] LABS: Cells Analyzed 200 (.); Cells Counted 200 (.); Interpretation: Comment: (.); Specimen Type BLOOD (.)
== END 2025-01-27 23:59 | disposition home or self-care (01) ==
LOC: LAB 14:56
PROVIDERS: PCP Family Medicine; Visit Provider Internal Medicine Medical Oncology
DX: D75.839 Thrombocytosis, unspecified (principal); D64.9 Anemia, unspecified
CPT/HCPCS: 36415; 81270; 82607; 82728; 82746; 83010; 83540; 83550; 83615; 85044; 86880

== ENCOUNTER 2025-02-24 09:05 | Outpatient (CLI) | payer MEDICARE, SELFPAY ==
[2025-02-24 09:33] LABS: Basophils # 0.1 K/mm3 (0-0.2); Basophils % 0.7 % (0.1-2.0); Eosinophils # 0.1 K/mm3 (0.0-0.4); Hematocrit 28.6 % (37.0-47.0); Hemoglobin 8.9 g/dL (12.2-16.2); Lymphocytes # 1.4 K/mm3 (0.7-4.5); Lymphocytes % 11.8 % (10-50); Mean Corpuscular HGB Conc 31.1 g/dL (31.8-35.4); Mean Corpuscular Hemoglobin 31.8 pg (27.0-31.2); Mean Corpuscular Volume 102.1 fl (81-99); Mean Platelet Volume 9.9 fl (7.4-10.4); Monocytes # 0.8 K/mm3 (0.1-1.0); Monocytes % 6.4 % (1.7-9.3); Neutrophils # 9.7 K/mm3 (1.8-7.8); Neutrophils % 79.3 % (37.0-80.0); Nucleated Red Blood Cells # 0 10^3/uL; Nucleated Red Blood Cells % 0 %; Platelet Count 823 K/mm3 (142-424); Red Cell Distribution Width 14.6 % (11.5-17.5); Red Cell Distribution Width-SD 54.4 fL; White Blood Count 12.2 K/mm3 (4.8-10.8)
[2025-02-24 10:12] LABS: Albumin Level 4.2 g/dl (3.5-5.0); Chloride 103 mmol/L (98-107); Sodium 139 mmol/L (136-145)
[2025-02-24 10:13] LABS: Potassium 5.4 mmoL/L (3.5-5.1)
[2025-02-24 10:15] LABS: Alanine Aminotransferase 16 U/L (12-78); Alkaline Phosphatase 94 U/L (38-126); Anion Gap 13.4 mEq/L (5-15); Aspartate Amino Transferase 27 U/L (14-36); Bilirubin,Total 0.4 mg/dl (0.2-1.3); Blood Urea Nitrogen 26 mg/dl (7-17); Carbon Dioxide 28 mmol/L (22.0-30.0); Estimated Glomerular Filt Rate 30 ml/min (>60); GFR (African American) 36 ML/MIN (>60)
[2025-02-24 10:16] LABS: Albumin/Globulin Ratio 1.3 (1.1-1.8); Calcium 9.3 mg/dl (8.4-10.2); Globulin 3.3 g/dL (1.3-3.2); Glucose 100 mg/dl (74-100); Total Protein,Serum 7.5 g/dl (6.3-8.2)
== END 2025-02-24 23:59 | disposition home or self-care (01) ==
LOC: LAB 09:06
PROVIDERS: PCP Family Medicine; Visit Provider Internal Medicine Medical Oncology
DX: D75.839 Thrombocytosis, unspecified (principal)
CPT/HCPCS: 36415; 80053; 85025

== ENCOUNTER 2025-03-10 09:30 | Outpatient (CLI) | payer MEDICARE, SELFPAY ==
--- OUTSIDE RECORDS SUMMARY | 2025-03-10 09:32 | XMS_ITS | Continuity of Care Document ---
Author Organization [facility] Phone Care Team Providers Care Maintenance Porter Name Role Phone DANIELA MCCRARY Primary Attending DANIELA MCCRARY Unavailable DANIELA MCCRARY Admitting RIMA FOWLER Primary Care ALLERGIES AND ADVERSE REACTIONS ALLERGIES AND ADVERSE REACTIONS Code System Allergy Substance Adverse Reaction Date Reaction (Severity) Comment Status Reported By Updated By No Known Allergies [id number] on December 11, 2024 11:56:22 AM [facility] RESULTS Patient: GALINA ABDI Date of : February 23 LABORATORY RESULTS Information is not available LABORATORY NARRATIVE RESULTS Information is not available RADIOLOGY RESULTS ORDER 100: KNEE 2V RT (LOINC : 36433-8) ORDER DATE: January 22, 2025 1:32:00 PM [facility] PERFORMING LAB: [address] [id number] Final Result Date: January 22, 2025 1:48:[address] [place] [address] Name: TRINIDAD MOJICA Exam Date: 01/22/2025 : 1955 Age 69 years Gender: F Physician: DANIELA MCCRARY Facility: [facility] Facility HSV: Outpatient Exam: KNEE 2V RT Right knee 2 views HISTORY: Status post TKA. COMPARISON: 12/25/2024 and earlier studies. FINDINGS: Hardware in proper anatomic position. No loosening or surrounding fractures evident. Soft tissues are minimally swollen. No significant joint fluid. IMPRESSION: Satisfactory postoperative appearance of the right knee. Electronically signed by: Alvaro Puga MD 01/26/2025 08:27 AM EDT RP Dictated By: ALVARO PUGA Transcribed By: Transcribed On: 01/22/2025 9:48 AM Electronically signed by: ALVARO PUGA 01/22/2025 Thank you for referring [facility]. Legally authenticated by EDD JOHN MD 2025-01-22 09:48:04 PATHOLOGY NARRATIVE RESULTS Information is not available MICROBIOLOGY RESULTS No Micro Labs/Results Exist for Patient BLOOD ADMIN RESULTS Information is not available MEDICATIONS HOME MEDICATIONS Status RXNORM NDC Medication Dose Route Frequency Dates Comments Reported By Updated By Drug Treatment Unknown DISCHARGE MEDICATIONS Status RXNORM NDC Medication Dose Route Frequency Dates Comments Physician Updated By No Discharge Medication Info rmation Available INPATIENT MEDICATIONS Status RXNORM NDC Medication Dose Route Frequency Rat e Quantity Dates Comments Physician Updated By No Inpatient Medication Info rmation Available SOCIAL HISTORY SOCIAL HISTORY SNOMED-CT Social History Element Description Effective Dates Offered Cessation Comment UpdatedBy [id number] Smoking Status Unknown If Ever Smoked SOCIAL HISTORY - Gender Sex: Female SOCIAL HISTORY - Status : status i nformation is not available Intention in Next Year: intention information is not available SOCIAL HISTORY - Sexual Behavior Sexual Orientation Gender Identity SNOMED-CT Description SNO MED -CT Description Activity Level No of Partners Partner Type UpdatedBy Information is not available HEALTH CONCERNS Problems Concern Status Health Concern problem infor mation not available. Smoking Status Status Years Used Consumed packs p er day Health Concern smoking histo ry information not available. Family History Concern Status Health Concern family histor y information not available. MEDICAL EQUIPMENT MEDICAL EQUIPMENT Device Status Quantity Dates Procedure Comments Updated By Orthopedic cement dispenser PATEL: [id number] Assigning Authority: FDA Device Identifier:[id number] Lot or Batch Number:[id number] Expiration Date:2026-04-11 ACTIVE 2 Implanted: December 11, 2024 RIGHT TKA [id number] on December 11, 2024 1:10:13 PM UTC Uncoated knee tibia prosthesis, metallic PATEL: )[id number] Assigning Authority: FDA Device Identifier:[id number] Lot or Batch Number:[id number] Expiration Date:2034-06-11 ACTIVE 1 Implanted: December 11, 2024 RIGHT TKA [id number] on December 11, 2024 1:24:40 PM UTC Polyethylene patella prosthesis PATEL: ()[id number] Assigning Authority: FDA Device Identifier:[id number] Lot or Batch Number:[id number] Expiration Date:2029-05-11 ACTIVE 1 Implanted: December 11, 2024 RIGHT TKA [id number] on December 11, 2024 1:25:31 PM UTC Knee femur prosthesis PATEL: ()[id number] Assigning Authority: FDA Device Identifier:[id number] Lot or Batch Number:[id number] Expiration Date:2034-04-11 ACTIVE 1 Implanted: December 11, 2024 RIGHT TKA [id number] on December 11, 2024 1:26:32 PM UTC Tibial insert PATEL: ()[id number] Assigning Authority: FDA Device Identifier:[id number] Expiration Date:2029-04-11 ACTIVE 1 Implanted: December 11, 2024 RIGHT TKA [id number] on December 11, 2024 1:27:51 PM UTC ENCOUNTERS ENCOUNTER INFORMATION Reason for Visit Z47.1 Admission January 22, 2025 1:15:00 PM UTC [address] [address] Discharge January 22, 2025 1:15:00 PM UTC DI SCHARGED TO HOME OR SELF CARE ENCOUNTER DIAGNOSES Notes information is not dustin ilable. Code System Diagnosis Onset Date Diagnosis information is not available. ABSTRACT DIAGNOSES Code System Diagnosis Updated By Z47.1 ICD10 AFTERCARE FOLLOW ING JOINT REPLACEMENT SURGERY [id number] on January 26, 2025 10:34:59 AM [place] Z47.1 ICD10 AFTERCARE FOLLOW ING JOINT REPLACEMENT SURGERY [id number] on January 26, 2025 10:35:10 AM [facility] CARE TEAM Care Maintenance Porter Role DANIELA MCCRARY Primary Attending DANIELA MCCRARY Referring DANIELA MCCRARY Admitting RIMA FOWLER Primary Care CARE TEAM CARE software reliability engineer Role on Team Status Start Date End Date Update d By MALCOLM ABARCA MD PCP normal January 22, 2025 4:00:00 AM [place] January 22, 2025 1:15:00 PM [place] [id number] on January 22, 2025 1:16:52 PM [facility] HERMANN SUAREZ MD Referring normal January 22 4:00:00 AM [place] January 22, 2025 1:15:00 PM [facility] [id number] on January 22, 2025 1:16:52 PM [facility] HERMANN SUAREZ MD Attending normal January 22 4:00:00 AM [facility] January 22, 2025 1:15:00 PM [facility] [id number] on January 22, 2025 1:16:52 PM [facility] HERMANN SUAREZ MD Admitting normal January 22 4:00:00 AM [facility] January 22, 2025 1:15:00 PM [facility] [id number] on January 22, 2025 1:16:52 PM [facility]
--- OUTSIDE RECORDS SUMMARY | 2025-03-10 09:32 | XMS_ITS | Continuity of Care Document ---
Author Organization [facility] Phone Care Team Providers Care Recovery Operator Name Role Phone RIMA FOWLER Primary Care MINESH PAIZ Admitting MINESH PAIZ Primary Attending [phone] MINESH PAIZ Unavailable ALLERGIES AND ADVERSE REACTIONS ALLERGIES AND ADVERSE REACTIONS Code System Allergy Substance Adverse Reaction Date Reaction (Severity) Comment Status Reported By Updated By No Known Allergies [id number] on December 11, 2024 11:56:22 AM [facility] RESULTS Patient: GALINA ABDI Date of : [birth year] 23 LABORATORY RESULTS Information is not available LABORATORY NARRATIVE RESULTS Information is not available RADIOLOGY RESULTS ORDER 100: VENOUS DUPLEX LOW ER RIGHT (LOINC: 84308-1) ORDER DATE: January 23, 2025 1:00:00 PM [facility] PERFORMING LAB: [address] [id number] Final Result Date: January 23, 2025 1:43:[address] [place] [address] Name: TRINIDAD MOJICA Exam Date: 01/23/2025 : 1955 Age 69 years Gender: F Physician: MINESH PAIZ Facility: [facility] Facility HSV: Outpatient Exam: VENOUS DUPLEX LOWER RIGHT PROCEDURE: Duplex ultrasound of the right lower extremity CLINICAL INDICATION: pain. TECHNIQUE: Duplex ultrasound of the right lower extremity with spectral analysis and color flow. FINDINGS: Common femoral vein, superficial femoral vein (proximal, mid and distal segments), and popliteal vein are patent with normal spectral Doppler waveform and compressibility. Patent posterior tibial vein and anterior tibial vein. Popliteal fossa cyst measuring 3.4 x 2.9 x 1 cm. IMPRESSION: No sonographic evidence of DVT in the right lower extremity. Popliteal fossa cyst measuring 3.4 x 2.9 x 1 cm. Electronically signed by: Pricilla Corcoran MD 01/23/2025 10:32 AM EDT RP Dictated By: PRICILLA CORCORAN Transcribed By: Transcribed On: 01/23/2025 9:43 AM Electronically signed by: PRICILLA CORCORAN 01/23/2025 Thank you for referring TRINIDAD MOJICA to [facility]. Legally authenticated by NILO DICKENS MD 2025-01-23 09:43:36 PATHOLOGY NARRATIVE RESULTS Information is not available [...] Description Effective Dates Offered Cessation Comment UpdatedBy [id number] Smoking Status Unknown If Ever Smoked SOCIAL [...] Comments Updated By Orthopedic cement dispenser PATEL: [id number] Assigning Authority: [facility] Device Identifier:[id number] Lot or Batch Number:[id number] Expiration Date:2026-04-11 ACTIVE 2 Implanted: December 11, 2024 RIGHT TKA [id number] on December 11, 2024 1:10:13 PM UTC Uncoated knee tibia prosthesis, metallic PATEL: ()[id number] Assigning Authority: FDA Device Identifier:[id number] Lot or Batch Number:[id number] Expiration Date:2034-06-11 ACTIVE 1 Implanted: December 11, 2024 RIGHT TKA [id number] on December 11, 2024 1:24:40 PM UTC Polyethylene patella prosthesis PATEL: ()[id number] Assigning Authority: FDA Device Identifier:[id number] Lot or Batch Number:[id number] Expiration Date:2029-05-11 ACTIVE 1 Implanted: December 11, 2024 RIGHT TKA [id number] on December 11, 2024 1:25:31 PM UTC Knee femur prosthesis PATEL: ()[id number] Assigning Authority: FDA Device Identifier:[id number] Lot or Batch Number:[id number] Expiration Date:2034-04-11 ACTIVE 1 Implanted: December 11, 2024 RIGHT TKA [id number] on December 11, 2024 1:26:32 PM UTC Tibial insert PATEL: ()[id number] Assigning Authority: FDA Device Identifier:[id number] Expiration Date:2029-04-11 ACTIVE 1 Implanted: December 11, 2024 RIGHT TKA [id number] on December 11, 2024 1:27:51 PM [place] ENCOUNTERS ENCOUNTER INFORMATION Reason for Visit M79.64 Admission January 23, 2025 12:49:00 PM [place] B [address] [address] Discharge January 23, 2025 12:49:00 PM UTC D ISCHARGED TO HOME OR SELF CARE ENCOUNTER DIAGNOSES Notes information is not dustin ilable. Code System Diagnosis Onset Date Diagnosis information is not available. ABSTRACT DIAGNOSES Code System Diagnosis Updated By M79.604 ICD10 PAIN IN RIGHT LEG [id number] on January 26, 2025 10:18:25 AM [place] M71.21 ICD10 SYNOVIAL CYST OF POPLITEAL SPACE [CHAPMAN], RIGHT KNEE [id number] on January 26, 2025 10:18:25 AM UT M79.604 ICD10 PAIN IN RIGHT LEG [id number] on January 26, 2025 10:18:25 AM [facility] CARE TEAM Care Recovery Operator Role RIMA FOWLER Primary Care MINESH PAIZ Admitting MINESH PAIZ Primary Attending MINESH PAIZ Referring CARE TEAM CARE poolroom table attendant Role on Team Status Start Date End Date Update d By MALCOLM ABARCA MD PCP normal January 22, 2025 5:02:14 PM [facility] January 23, 2025 12:49:00 PM [facility] [id number] on January 22, 2025 5:02:14 PM [facility] CHENCHO EDGE PA-C Referring normal January 22, 2025 5:02:14 PM [facility] January 23, 2025 12:49:00 PM [facility] [id number] on January 22, 2025 5:02:14 PM [facility] CHENCHO EDGE PA-C Attending normal January 22, 2025 5:02:14 PM [facility] January 23, 2025 12:49:00 PM [facility] [id number] on January 22, 2025 5:02:14 PM [facility] CHENCHO EDGE PA-C Admitting normal January 22, 2025 5:02:14 PM [facility] January 23, 2025 12:49:00 PM [facility] [id number] on January 22, 2025 5:02:14 PM [facility]
--- OUTSIDE RECORDS SUMMARY | 2025-03-10 09:32 | XMS_ITS | Continuity of Care Document ---
Author Organization [facility] [email or web address] Phone Care Team Providers Care Security Operations Center Analyst Name Role Phone MINESH PAIZ Unavailable MINESH PAIZ Primary Attending MINESH PAIZ Admitting RIMA FOWLER Primary Care [phone] ALLERGIES AND ADVERSE REACTIONS ALLERGIES AND ADVERSE REACTIONS Code System Allergy Substance Adverse Reaction Date Reaction (Severity) Comment Status Reported By Updated By No Known Allergies [id number] on December 11, 2024 11:56:22 AM [facility] MEDICATIONS HOME MEDICATIONS Status RXNORM NDC Medication [...] Description Effective Dates Offered Cessation Comment UpdatedBy [id number] Smoking Status Unknown If Ever Smoked SOCIAL [...] Comments Updated By Orthopedic cement dispenser PATEL: [id number] Assigning Authority: FDA Device Identifier:[id number] Lot or Batch Number:[id number] Expiration Date:2026-04-11 ACTIVE 2 Implanted: December 11, 2024 RIGHT TKA [id number] on December 11, 2024 1:10:13 PM UTC Uncoated knee tibia prosthesis, metallic PATEL: ()[id number] Assigning Authority: FDA Device Identifier:[id number] Lot or Batch Number:[id number] Expiration Date:2034-06-11 ACTIVE 1 Implanted: December 11, 2024 RIGHT TKA [id number] on December 11, 2024 1:24:40 PM UTC Polyethylene patella prosthesis PATEL: ()[id number] Assigning Authority: FDA Device Identifier:[id number] Lot or Batch Number:[id number] Expiration Date:2029-05-11 ACTIVE 1 Implanted: December 11, 2024 RIGHT TKA [id number] on December 11, 2024 1:25:31 PM UTC Knee femur prosthesis PATEL: ()[id number] Assigning Authority: FDA Device Identifier:[id number] Lot or Batch Number:[id number] Expiration Date:2034-04-11 ACTIVE 1 Implanted: December 11, 2024 RIGHT TKA [id number] on December 11, 2024 1:26:32 PM UTC Tibial insert PATEL: ()[id number] Assigning Authority: FDA Device Identifier:[id number] Expiration Date:2029-04-11 ACTIVE 1 Implanted: December 11, 2024 RIGHT TKA [id number] on December 11, 2024 1:27:51 PM UTC ENCOUNTERS ENCOUNTER INFORMATION Reason for Visit Z98.890 Admission January 19, 2025 12:52:00 PM [place] [address] [address] Discharge February 10, 2025 3:59:00 AM [place] DIS CHARGED TO HOME OR SELF CARE ENCOUNTER DIAGNOSES Notes information is not dustin ilable. Code System Diagnosis Onset Date Diagnosis information is not available. 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 [id number] on February 13, 2025 11:31:43 AM UTC CARE TEAM Care Security Operations Center Analyst Role MINESH PAIZ Referring MINESH PAIZ Primary Attending MINESH PAIZ Admitting RIMA FOWLER Primary Care CARE TEAM CARE cardiac care nurse Role on Team Status Start Date End Date Update d By CHENCHO EDGE PA-C Referring normal January 19, 2025 1:11:03 PM [place] January 19, 2025 4:00:00 AM UTC [id number] on January 19, 2025 1:11:03 PM [facility] CHENCHO EDGE PA-C Attending normal January 19, 2025 1:11:03 PM [place] January 19, 2025 4:00:00 AM UTC [id number] on January 19, 2025 1:11:03 PM [facility] CHENCHO EDGE PA-C Admitting normal January 19, 2025 1:11:02 PM UT January 19, 2025 4:00:00 AM UTC [id number] on January 19, 2025 1:11:03 PM [facility] MALCOLM ABARCA MD PCP normal January 19, 2025 11:45:48 AM [facility] January 19, 2025 4:00:00 AM UTC [id number] on January 19, 2025 1:11:03 PM [facility] HERMANN SUAREZ MD Referring normal January 19 11:45:48 AM [facility] January 19, 2025 1:11:03 PM UTC [id number] on January 19, 2025 1:11:03 PM [facility] HERMANN SUAREZ MD Attending normal January 19 11:45:48 AM [place] January 19, 2025 1:11:03 PM UTC [id number] on January 19, 2025 1:11:03 PM [facility] HERMANN SUAREZ MD Admitting normal January 19 11:45:48 AM UT January 19, 2025 1:11:02 PM UTC [id number] on January 19, 2025 1:11:03 PM [facility]
--- OUTSIDE RECORDS SUMMARY | 2025-03-10 09:32 | XMS_ITS | Continuity of Care Document ---
Author Organization [facility] Phone Care Team Providers Care Assembly Inspector Helper Name Role Phone DANIELA MCCRARY Primary Attending RIMA FOWLER Primary Care DANIELA MCCRARY Unavailable DANIELA MCCRARY Admitting ALLERGIES AND ADVERSE REACTIONS ALLERGIES AND ADVERSE REACTIONS Code System Allergy Substance Adverse Reaction Date Reaction (Severity) Comment Status Reported By Updated By No Known Allergies [email or web address] on December 11, 2024 11:56:22 AM [facility] RESULTS Patient: GALINA ABDI Date of : February 23 LABORATORY RESULTS Information is not available LABORATORY NARRATIVE RESULTS Information is not available RADIOLOGY RESULTS ORDER 100: KNEE 2V RT (LOINC : 00250-5) ORDER DATE: March 05, 2025 1:04:00 PM [facility] PERFORMING LAB: [address] [id number] Final Result Date: March 05, 2025 1:10:[address] [place] [address] Name: TRINIDAD MOJICA Exam Date: 03/05/2025 : 1955 Age 70 years Gender: F Physician: DANIELA MCCRARY Facility: [facility] Facility HSV: Outpatient Exam: KNEE 2V RT PROCEDURE DESCRIPTION: XR RIGHT KNEE 2 VIEWS CLINICAL INDICATION: Pain, right knee replacement 2 months ago, aftercare following joint replacement surgery. TECHNIQUE: 2 views / 2 images submitted. COMPARISON: XR Right Knee 01/22/2025, FINDINGS: There is no evidence of acute fracture or dislocation. There is stable postoperative changes from total knee replacement. IMPRESSION: Stable postoperative changes from total knee replacement. Electronically signed by: Artemio Gómez MD 03/05/2025 10:29 AM EDT RP Dictated By: Artemio Gómez Transcribed By: Transcribed On: 03/05/2025 9:10 AM Electronically signed by: Artemio Gómez 03/05/2025 Thank you for referring TRINIDAD MOJICA to [facility]. Legally authenticated by MAYANK ANTHONY MD 2025-03-05 09:10:52 PATHOLOGY NARRATIVE RESULTS Information is not available [...] Description Effective Dates Offered Cessation Comment UpdatedBy [id number] Smoking Status Unknown If Ever Smoked SOCIAL [...] Comments Updated By Orthopedic cement dispenser PATEL: ()[id number] Assigning Authority: FDA Device Identifier:[id number] Lot or Batch Number:[id number] Expiration Date:2026-04-11 ACTIVE 2 Implanted: December 11, 2024 RIGHT TKA [id number] on December 11, 2024 1:10:13 PM UTC Uncoated knee tibia prosthesis, metallic PATEL: ()[id number] Assigning Authority: FDA Device Identifier:[id number] Lot or Batch Number:[id number] Expiration Date:2034-06-11 ACTIVE 1 Implanted: December 11, 2024 RIGHT TKA [id number] on December 11, 2024 1:24:40 PM UTC Polyethylene patella prosthesis PATEL: ()[id number] Assigning Authority: FDA Device Identifier:[id number] Lot or Batch Number:[id number] Expiration Date:2029-05-11 ACTIVE 1 Implanted: December 11, 2024 RIGHT TKA [id number] on December 11, 2024 1:25:31 PM UTC Knee femur prosthesis PATEL: ()[id number] Assigning Authority: FDA Device Identifier:[id number] Lot or Batch Number:[id number] Expiration Date:2034-04-11 ACTIVE 1 Implanted: December 11, 2024 RIGHT TKA [id number] on December 11, 2024 1:26:32 PM UTC Tibial insert PATEL: ()[id number] Assigning Authority: FDA Device Identifier:[id number] Expiration Date:2029-04-11 ACTIVE 1 Implanted: December 11, 2024 RIGHT TKA [id number] on December 11, 2024 1:27:51 PM [place] ENCOUNTERS ENCOUNTER INFORMATION Reason for Visit Z47.1 Admission March 05, 2025 12:49:00 PM [place] B [address] [address] Discharge March 05, 2025 12:49:00 PM UT D ISCHARGED TO HOME OR SELF CARE ENCOUNTER DIAGNOSES Notes information is not dustin ilable. Code System Diagnosis Onset Date Diagnosis information is not available. 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 [id number] on March 09, 2025 7:25:42 AM [facility] CARE TEAM Care Assembly Inspector Helper Role DANIELA MCCRARY Primary Attending RIMA FOWLER Primary Care DANIELA MCCRARY Referring DANIELA MCCRARY Admitting CARE TEAM CARE pressfitter Role on Team Status Start Date End Date Update d By MALCOLM ABARCA MD PCP normal March 05, 2025 4:00:00 AM [facility] March 05, 2025 12:49:00 PM [facility] [id number] on March 05, 2025 12:50:14 PM [facility] HERMANN SUAREZ MD Referring normal March 05 4:00:00 AM [facility] March 05, 2025 12:49:00 PM [facility] [id number] on March 05, 2025 12:50:14 PM [facility] HERMANN SUAREZ MD Attending normal March 05 4:00:00 AM [facility] March 05, 2025 12:49:00 PM [facility] [id number] on March 05, 2025 12:50:14 PM [facility] HERMANN SUAREZ MD Admitting normal March 05 4:00:00 AM [facility] March 05, 2025 12:49:00 PM [facility] [id number] on March 05, 2025 12:50:14 PM [facility]
[2025-03-10 10:20] LABS: Basophils # 0.1 K/mm3 (0-0.2); Basophils % 0.6 % (0.1-2.0); Eosinophils # 0.1 Kmm3 (0.0-0.4); Hematocrit 28.6 % (37.0-47.0); Hemoglobin 8.7 g/dL (12.2-16.2); Lymphocytes # 1.5 K/mm3 (0.7-4.5); Lymphocytes % 13.5 % (10-50); Mean Corpuscular HGB Conc 30.4 g/dL (31.8-35.4); Mean Corpuscular Hemoglobin 31.4 pg (27.0-31.2); Mean Corpuscular Volume 103.2 fl (81-99); Mean Platelet Volume 10.1 fl (7.4-10.4); Monocytes # 0.7 K/mm3 (0.1-1.0); Monocytes % 6.6 % (1.7-9.3); Neutrophils # 8.4 K/mm3 (1.8-7.8); Neutrophils % 77.5 % (37.0-80.0); Nucleated Red Blood Cells # 0 10^3/uL; Nucleated Red Blood Cells % 0 %; Platelet Count 839 K/mm3 (142-424); Red Blood Count 2.77 M/mm3 (4.20-5.40); Red Cell Distribution Width-SD 57.1 fL; White Blood Count 10.8 K/mm3 (4.8-10.8)
[2025-03-10 10:53] LABS: Alanine Aminotransferase 20 U/L (12-78); Albumin/Globulin Ratio 1.3 (1.1-1.8); Alkaline Phosphatase 93 U/L (38-126); Anion Gap 11.9 mEq/L (5-15); Aspartate Amino Transferase 26 U/L (14-36); Bilirubin,Total 0.5 mg/dl (0.2-1.3); Blood Urea Nitrogen 18 mg/dl (7-17); Calcium 9.4 mg/dl (8.4-10.2); Carbon Dioxide 27 mmol/L (22.0-30.0); Chloride 106 mmol/L (98-107); Estimated Glomerular Filt Rate 34 ml/min (>60); GFR (African American) 41 ML/MIN (>60); Glucose 113 mg/dl (74-100); Potassium 4.9 mmoL/L (3.5-5.1); Sodium 140 mmol/L (136-145)
== END 2025-03-10 23:59 | disposition home or self-care (01) ==
LOC: LAB 09:31
PROVIDERS: PCP Family Medicine; Visit Provider Internal Medicine Medical Oncology
DX: D75.839 Thrombocytosis, unspecified (principal)
CPT/HCPCS: 36415; 80053; 85025

== ENCOUNTER 2025-03-24 09:53 | Outpatient (CLI) | payer MEDICARE, SELFPAY ==
--- OUTSIDE RECORDS SUMMARY | 2025-03-24 09:55 | XMS_ITS | Continuity of Care Document ---
Author Organization [facility] [employer] Phone Care Team Providers Care Broadcast Checker Name Role Phone MINESH PAIZ Admitting MINESH PAIZ Primary Attending MINESH PAIZ Unavailable RIMA FOWLER Primary Care [phone] ALLERGIES AND ADVERSE REACTIONS ALLERGIES AND ADVERSE REACTIONS Code System Allergy Substance Adverse Reaction Date Reaction (Severity) Comment Status Reported By Updated By No Known Allergies [id number] on December 11, 2024 11:56:22 AM [facility] MEDICATIONS HOME MEDICATIONS Status RXNORM [...] Description Effective Dates Offered Cessation Comment UpdatedBy [id number] Smoking Status Unknown If Ever Smoked SOCIAL [...] Comments Updated By Orthopedic cement dispenser PATEL: [id number] Assigning Authority: FDA Device Identifier:[id number] Lot or Batch Number:[id number] Expiration Date:2026-04-11 ACTIVE 2 Implanted: December 11, 2024 RIGHT TKA [id number] on December 11, 2024 1:10:13 PM UTC Uncoated knee tibia prosthesis, metallic PATEL: ()[id number] Assigning Authority: FDA Device Identifier:[id number] Lot or Batch Number:[id number] Expiration Date:2034-06-11 ACTIVE 1 Implanted: December 11, 2024 RIGHT TKA [id number] on December 11, 2024 1:24:40 PM UTC Polyethylene patella prosthesis PATEL: ()[id number] Assigning Authority: FDA Device Identifier:[id number] Lot or Batch Number:[id number] Expiration Date:2029-05-11 ACTIVE 1 Implanted: December 11, 2024 RIGHT TKA [id number] on December 11, 2024 1:25:31 PM UTC Knee femur prosthesis PATEL: ()[id number] Assigning Authority: FDA Device Identifier:[id number] Lot or Batch Number:[id number] Expiration Date:2034-04-11 ACTIVE 1 Implanted: December 11, 2024 RIGHT TKA [id number] on December 11, 2024 1:26:32 PM UTC Tibial insert PATEL: ()[id number] Assigning Authority: FDA Device Identifier:[id number] Expiration Date:2029-04-11 ACTIVE 1 Implanted: December 11, 2024 RIGHT TKA [id number] on December 11, 2024 1:27:51 PM UTC ENCOUNTERS ENCOUNTER INFORMATION Reason for Visit Z98.890 Admission February 11, 2025 7:32:00 AM UTC [address] [address] Discharge March 12, 2025 3:59:00 AM UTC DISCH ARGED TO HOME OR SELF CARE ENCOUNTER DIAGNOSES Notes information is not dustin ilable. Code System Diagnosis Onset Date Diagnosis information is not available. 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 [id number] on March 14, 2025 1:27:35 PM [facility] CARE TEAM Care Broadcast Checker Role MINESH PAIZ Admitting MINESH PAIZ Primary Attending MINESH PAIZ Referring RIMA FOWLER Primary Care CARE TEAM CARE printer small print shop Role on Team Status Start Date End Date Update d By CHENCHO EDGE PA-C Referring normal February 11, 2025 4:06:47 AM [facility] February 11, 2025 4:00:00 AM [facility] [id number] on February 11, 2025 4:06:47 AM [facility] CHENCHO EDGE PA-C Attending normal February 11, 2025 4:06:47 AM [facility] February 11, 2025 4:00:00 AM [facility] [id number] on February 11, 2025 4:06:47 AM [facility] CHENCHO EDGE PA-C Admitting normal February 11, 2025 4:06:47 AM [facility] February 11, 2025 4:00:00 AM [facility] [id number] on February 11, 2025 4:06:47 AM [facility] MALCOLM ABARCA MD PCP normal February 10, 2025 7:32:32 AM [facility] February 11, 2025 4:00:00 AM [facility] [id number] on February 11, 2025 4:06:47 AM [facility]
[2025-03-24 10:27] LABS: Basophils # 0.1 K/mm3 (0-0.2); Basophils % 0.5 % (0.1-2.0); Eosinophils # 0.1 Kmm3 (0.0-0.4); Eosinophils % 1.1 % (0.1-12.0); Hematocrit 29.8 % (37.0-47.0); Hemoglobin 9.4 g/dL (12.2-16.2); Immature Granulocytes # 0.09 10^3uL; Immature Granulocytes % 0.8 %; Lymphocytes # 1.7 K/mm3 (0.7-4.5); Lymphocytes % 15.1 % (10-50); Mean Corpuscular HGB Conc 31.5 g/dL (31.8-35.4); Mean Corpuscular Hemoglobin 32.3 pg (27.0-31.2); Mean Corpuscular Volume 102.4 fl (81-99); Mean Platelet Volume 9.7 fl (7.4-10.4); Monocytes # 0.8 K/mm3 (0.1-1.0); Monocytes % 6.7 % (1.7-9.3); Neutrophils # 8.6 K/mm3 (1.8-7.8); Neutrophils % 75.8 % (37.0-80.0); Nucleated Red Blood Cells # 0 10^3/uL; Nucleated Red Blood Cells % 0 %; Platelet Count 749 K/mm3 (142-424); Red Blood Count 2.91 M/mm3 (4.20-5.40); Red Cell Distribution Width 15.3 % (11.5-17.5); Red Cell Distribution Width-SD 57.1 fL; White Blood Count 11.4 K/mm3 (4.8-10.8)
== END 2025-03-24 23:59 | disposition home or self-care (01) ==
LOC: LAB 09:54
PROVIDERS: PCP Family Medicine; Visit Provider Internal Medicine Medical Oncology
DX: D64.9 Anemia, unspecified (principal)
CPT/HCPCS: 36415; 85025

== ENCOUNTER 2025-04-09 12:53 | Outpatient (CLI) | payer MEDICARE, SELFPAY ==
[2025-04-09 13:27] LABS: Basophils # 0.1 K/mm3 (0-0.2); Basophils % 0.7 % (0.1-2.0); Eosinophils # 0.2 Kmm3 (0.0-0.4); Eosinophils % 1.2 % (0.1-12.0); Hematocrit 29.1 % (37.0-47.0); Hemoglobin 8.8 g/dL (12.2-16.2); Immature Granulocytes # 0.13 10^3uL; Immature Granulocytes % 1.1 %; Lymphocytes # 1.7 K/mm3 (0.7-4.5); Mean Corpuscular HGB Conc 30.2 g/dL (31.8-35.4); Mean Corpuscular Hemoglobin 31.2 pg (27.0-31.2); Mean Corpuscular Volume 103.2 fl (81-99); Mean Platelet Volume 9.7 fl (7.4-10.4); Monocytes # 0.9 K/mm3 (0.1-1.0); Monocytes % 7.1 % (1.7-9.3); Neutrophils # 9.3 K/mm3 (1.8-7.8); Neutrophils % 75.9 % (37.0-80.0); Nucleated Red Blood Cells # 0 10^3/uL; Nucleated Red Blood Cells % 0 %; Platelet Count 853 K/mm3 (142-424); Red Blood Count 2.82 M/mm3 (4.20-5.40); Red Cell Distribution Width 15.4 % (11.5-17.5); Red Cell Distribution Width-SD 57.5 fL; White Blood Count 12.3 K/mm3 (4.8-10.8)
[2025-04-09 14:56] LABS: Alanine Aminotransferase 18 U/L (12-78); Albumin Level 4.2 g/dl (3.5-5.0); Albumin/Globulin Ratio 1.4 (1.1-1.8); Aspartate Amino Transferase 23 U/L (14-36); Blood Urea Nitrogen 28 mg/dl (7-17); Calcium 9.1 mg/dl (8.4-10.2); Carbon Dioxide 23 mmol/L (22.0-30.0); Chloride 105 mmol/L (98-107); Estimated Glomerular Filt Rate 28 ml/min (>60); GFR (African American) 34 ML/MIN (>60); Glucose 102 mg/dl (74-100); Total Protein,Serum 7.2 g/dl (6.3-8.2)
[2025-04-09 14:57] LABS: Alkaline Phosphatase 93 U/L (38-126); Bilirubin,Total 0.5 mg/dl (0.2-1.3); Sodium 136 mmol/L (136-145)
== END 2025-04-09 23:59 | disposition home or self-care (01) ==
LOC: LAB 12:55
PROVIDERS: PCP Family Medicine; Visit Provider Internal Medicine Medical Oncology
DX: D47.3 Essential (hemorrhagic) thrombocythemia (principal); D64.9 Anemia, unspecified
CPT/HCPCS: 36415; 80053; 85025

== ENCOUNTER 2025-04-23 09:01 | Outpatient (CLI) | payer MEDICARE, SELFPAY ==
[2025-04-23 09:34] LABS: Basophils # 0.1 K/mm3 (0-0.2); Basophils % 0.6 % (0.1-2.0); Eosinophils # 0.1 Kmm3 (0.0-0.4); Eosinophils % 1.3 % (0.1-12.0); Hematocrit 28.9 % (37.0-47.0); Hemoglobin 9.1 g/dL (12.2-16.2); Immature Granulocytes # 0.07 10^3uL; Immature Granulocytes % 0.6 %; Lymphocytes # 1.4 K/mm3 (0.7-4.5); Lymphocytes % 12.7 % (10-50); Mean Corpuscular HGB Conc 31.5 g/dL (31.8-35.4); Mean Corpuscular Hemoglobin 32.6 pg (27.0-31.2); Mean Corpuscular Volume 103.6 fl (81-99); Mean Platelet Volume 9.6 fl (7.4-10.4); Monocytes # 0.7 K/mm3 (0.1-1.0); Monocytes % 6.3 % (1.7-9.3); Neutrophils # 8.7 K/mm3 (1.8-7.8); Neutrophils % 78.5 % (37.0-80.0); Nucleated Red Blood Cells # 0 10^3/uL; Nucleated Red Blood Cells % 0 %; Platelet Count 740 K/mm3 (142-424); Red Blood Count 2.79 M/mm3 (4.20-5.40); Red Cell Distribution Width 15.2 % (11.5-17.5); Red Cell Distribution Width-SD 57.5 fL; White Blood Count 11.1 K/mm3 (4.8-10.8)
== END 2025-04-23 23:59 | disposition home or self-care (01) ==
LOC: LAB 09:02
PROVIDERS: PCP Family Medicine; Visit Provider Internal Medicine Medical Oncology
DX: D75.839 Thrombocytosis, unspecified (principal); D64.9 Anemia, unspecified
CPT/HCPCS: 36415; 85025

== ENCOUNTER 2025-05-06 10:09 | Outpatient (CLI) | payer MEDICARE, SELFPAY ==
[2025-05-06 10:43] LABS: Basophils # 0.1 K/mm3 (0-0.2); Basophils % 0.5 % (0.1-2.0); Eosinophils # 0.2 Kmm3 (0.0-0.4); Eosinophils % 1.4 % (0.1-12.0); Hematocrit 30.5 % (37.0-47.0); Hemoglobin 9.6 g/dL (12.2-16.2); Immature Granulocytes # 0.07 10^3uL; Immature Granulocytes % 0.6 %; Lymphocytes # 1.5 K/mm3 (0.7-4.5); Mean Corpuscular HGB Conc 31.5 g/dL (31.8-35.4); Mean Corpuscular Hemoglobin 32.4 pg (27.0-31.2); Mean Platelet Volume 9.9 fl (7.4-10.4); Monocytes # 0.6 K/mm3 (0.1-1.0); Monocytes % 5.2 % (1.7-9.3); Neutrophils # 8.6 K/mm3 (1.8-7.8); Neutrophils % 78.3 % (37.0-80.0); Nucleated Red Blood Cells # 0 10^3/uL; Nucleated Red Blood Cells % 0 %; Platelet Count 825 K/mm3 (142-424); Red Blood Count 2.96 M/mm3 (4.20-5.40); Red Cell Distribution Width 14.9 % (11.5-17.5); Red Cell Distribution Width-SD 56.1 fL; White Blood Count 10.9 K/mm3 (4.8-10.8)
[2025-05-06 11:16] LABS: Albumin Level 4.4 g/dl (3.5-5.0); Chloride 100 mmol/L (98-107); Potassium 5.2 mmoL/L (3.5-5.1); Sodium 138 mmol/L (136-145)
[2025-05-06 11:19] LABS: Alanine Aminotransferase 17 U/L (12-78); Albumin/Globulin Ratio 1.3 (1.1-1.8); Alkaline Phosphatase 89 U/L (38-126); Anion Gap 16.2 mEq/L (5-15); Aspartate Amino Transferase 26 U/L (14-36); Bilirubin,Total 0.3 mg/dl (0.2-1.3); Blood Urea Nitrogen 23 mg/dl (7-17); Carbon Dioxide 27 mmol/L (22.0-30.0); Estimated Glomerular Filt Rate 34 ml/min (>60); GFR (African American) 41 ML/MIN (>60); Globulin 3.4 g/dL (1.3-3.2); Total Protein,Serum 7.8 g/dl (6.3-8.2)
[2025-05-06 11:20] LABS: Calcium 9.6 mg/dl (8.4-10.2); Glucose 133 mg/dl (74-100)
== END 2025-05-06 23:59 | disposition home or self-care (01) ==
LOC: LAB 10:09
PROVIDERS: PCP Family Medicine; Visit Provider Internal Medicine Medical Oncology
DX: D64.9 Anemia, unspecified (principal)
CPT/HCPCS: 36415; 80053; 85025

== ENCOUNTER 2025-05-20 08:29 | Outpatient (CLI) | payer MEDICARE, SELFPAY ==
[2025-05-20 08:43] LABS: Hematocrit 28.5 % (37.0-47.0); Hemoglobin 9.2 g/dL (12.2-16.2); Immature Granulocytes % 0.7 %; Mean Corpuscular HGB Conc 32.3 g/dL (31.8-35.4); Mean Corpuscular Hemoglobin 33.9 pg (27.0-31.2); Mean Corpuscular Volume 105.2 fl (81-99); Nucleated Red Blood Cells % 0 %; Platelet Count 590 K/mm3 (142-424); Red Blood Count 2.71 M/mm3 (4.20-5.40); Red Cell Distribution Width-SD 56.6 fL; White Blood Count 8.6 K/mm3 (4.8-10.8)
== END 2025-05-20 23:59 | disposition home or self-care (01) ==
LOC: LAB 08:30
PROVIDERS: PCP Family Medicine; Visit Provider Internal Medicine Medical Oncology
DX: D75.839 Thrombocytosis, unspecified (principal)
CPT/HCPCS: 36415; 85025

== ENCOUNTER 2025-06-03 09:43 | Outpatient (CLI) | payer MEDICARE, SELFPAY ==
[2025-06-03 10:12] LABS: Hematocrit 27.4 % (37.0-47.0); Hemoglobin 8.8 g/dL (12.2-16.2); Immature Granulocytes % 0.8 %; Mean Corpuscular HGB Conc 32.1 g/dL (31.8-35.4); Mean Corpuscular Hemoglobin 33.8 pg (27.0-31.2); Mean Corpuscular Volume 105.4 fl (81-99); Nucleated Red Blood Cells % 0 %; Platelet Count 615 K/mm3 (142-424); Red Blood Count 2.60 M/mm3 (4.20-5.40); Red Cell Distribution Width-SD 54.9 fL; White Blood Count 9.7 K/mm3 (4.8-10.8)
[2025-06-03 10:54] LABS: Albumin Level 3.9 g/dl (3.5-5.0); Chloride 100 mmol/L (98-107); Potassium 4.6 mmoL/L (3.5-5.1); Sodium 133 mmol/L (136-145)
[2025-06-03 10:56] LABS: Blood Urea Nitrogen 18 mg/dl (7-17); Creatinine,Serum 1.50 mg/dl (0.52-1.04); Estimated Glomerular Filt Rate 34 ml/min (>60); GFR (African American) 41 ML/MIN (>60)
[2025-06-03 10:57] LABS: Alanine Aminotransferase 13 U/L (12-78); Albumin/Globulin Ratio 1.3 (1.1-1.8); Alkaline Phosphatase 95 U/L (38-126); Anion Gap 10.6 mEq/L (5-15); Aspartate Amino Transferase 23 U/L (14-36); Bilirubin,Total 0.8 mg/dl (0.2-1.3); Calcium 9.3 mg/dl (8.4-10.2); Carbon Dioxide 27 mmol/L (22.0-30.0); Globulin 3.1 g/dL (1.3-3.2); Glucose 135 mg/dl (74-100); Total Protein,Serum 7.0 g/dl (6.3-8.2)
== END 2025-06-03 23:59 | disposition home or self-care (01) ==
LOC: LAB 09:44
PROVIDERS: PCP Family Medicine; Visit Provider Internal Medicine Medical Oncology
DX: D47.3 Essential (hemorrhagic) thrombocythemia (principal)
CPT/HCPCS: 36415; 80053; 85025

== ENCOUNTER 2025-07-01 08:30 | Outpatient (CLI) | payer MEDICARE, SELFPAY ==
[2025-07-01 09:18] LABS: Hematocrit 28.4 % (37.0-47.0); Hemoglobin 8.8 g/dL (12.2-16.2); Immature Granulocytes % 0.4 %; Mean Corpuscular HGB Conc 31.0 g/dL (31.8-35.4); Mean Corpuscular Hemoglobin 33.3 pg (27.0-31.2); Mean Corpuscular Volume 107.6 fl (81-99); Nucleated Red Blood Cells % 0 %; Platelet Count 737 K/mm3 (142-424); Red Blood Count 2.64 M/mm3 (4.20-5.40); Red Cell Distribution Width-SD 57.6 fL; White Blood Count 9.8 K/mm3 (4.8-10.8)
[2025-07-01 09:47] LABS: Albumin Level 4.2 g/dl (3.5-5.0); Chloride 103 mmol/L (98-107); Potassium 5.7 mmoL/L (3.5-5.1); Sodium 138 mmol/L (136-145)
[2025-07-01 09:50] LABS: Alanine Aminotransferase 16 U/L (12-78); Albumin/Globulin Ratio 1.3 (1.1-1.8); Alkaline Phosphatase 79 U/L (38-126); Anion Gap 14.7 mEq/L (5-15); Aspartate Amino Transferase 27 U/L (14-36); Bilirubin,Total 0.4 mg/dl (0.2-1.3); Blood Urea Nitrogen 30 mg/dl (7-17); Calcium 9.5 mg/dl (8.4-10.2); Carbon Dioxide 26 mmol/L (22.0-30.0); Creatinine,Serum 1.70 mg/dl (0.52-1.04); Estimated Glomerular Filt Rate 30 ml/min (>60); GFR (African American) 36 ML/MIN (>60); Globulin 3.2 g/dL (1.3-3.2); Glucose 99 mg/dl (74-100); Total Protein,Serum 7.4 g/dl (6.3-8.2)
== END 2025-07-01 23:59 | disposition home or self-care (01) ==
LOC: LAB 08:30
PROVIDERS: PCP Family Medicine; Visit Provider Internal Medicine Medical Oncology
DX: D47.3 Essential (hemorrhagic) thrombocythemia (principal)
CPT/HCPCS: 36415; 80053; 85025

== ENCOUNTER 2025-07-08 07:34 | Outpatient (CLI) | payer MEDICARE, SELFPAY ==
[2025-07-08 09:03] LABS: Chloride 107 mmol/L (98-107)
[2025-07-08 09:04] LABS: Albumin Level 4.2 g/dl (3.5-5.0); Potassium 5.0 mmoL/L (3.5-5.1); Sodium 141 mmol/L (136-145)
[2025-07-08 09:06] LABS: Alanine Aminotransferase 16 U/L (12-78); Aspartate Amino Transferase 30 U/L (14-36); Blood Urea Nitrogen 22 mg/dl (7-17); Creatinine,Serum 1.50 mg/dl (0.52-1.04); Estimated Glomerular Filt Rate 34 ml/min (>60); GFR (African American) 41 ML/MIN (>60)
[2025-07-08 09:07] LABS: Albumin/Globulin Ratio 1.4 (1.1-1.8); Alkaline Phosphatase 74 U/L (38-126); Anion Gap 13.0 mEq/L (5-15); Bilirubin,Total 0.4 mg/dl (0.2-1.3); Calcium 9.8 mg/dl (8.4-10.2); Carbon Dioxide 26 mmol/L (22.0-30.0); Globulin 3.1 g/dL (1.3-3.2); Glucose 140 mg/dl (74-100); Total Protein,Serum 7.3 g/dl (6.3-8.2)
== END 2025-07-08 23:59 | disposition home or self-care (01) ==
LOC: LAB 07:34
PROVIDERS: PCP Family Medicine; Visit Provider Internal Medicine Medical Oncology
DX: D47.3 Essential (hemorrhagic) thrombocythemia (principal); D64.9 Anemia, unspecified
CPT/HCPCS: 36415; 80053

== ENCOUNTER 2025-07-29 09:14 | Outpatient (CLI) | payer MEDICARE, SELFPAY ==
[2025-07-29 09:41] LABS: Hematocrit 27.6 % (37.0-47.0); Hemoglobin 9.0 g/dL (12.2-16.2); Immature Granulocytes % 1.0 %; Mean Corpuscular HGB Conc 32.6 g/dL (31.8-35.4); Mean Corpuscular Hemoglobin 35.7 pg (27.0-31.2); Mean Corpuscular Volume 109.5 fl (81-99); Nucleated Red Blood Cells % 0 %; Platelet Count 668 K/mm3 (142-424); Red Blood Count 2.52 M/mm3 (4.20-5.40); Red Cell Distribution Width-SD 58.4 fL; White Blood Count 10.7 K/mm3 (4.8-10.8)
== END 2025-07-29 23:59 | disposition home or self-care (01) ==
LOC: LAB 09:15
PROVIDERS: PCP Family Medicine; Visit Provider Internal Medicine Medical Oncology
DX: D47.3 Essential (hemorrhagic) thrombocythemia (principal)
CPT/HCPCS: 36415; 85025

== ENCOUNTER 2025-09-03 09:29 | Outpatient (CLI) | payer MEDICARE, SELFPAY ==
[2025-09-03 09:51] LABS: Hematocrit 28.8 % (37.0-47.0); Hemoglobin 9.2 g/dL (12.2-16.2); Immature Granulocytes % 1.0 %; Mean Corpuscular HGB Conc 31.9 g/dL (31.8-35.4); Mean Corpuscular Hemoglobin 35.2 pg (27.0-31.2); Mean Corpuscular Volume 110.3 fl (81-99); Nucleated Red Blood Cells % 0 %; Platelet Count 738 K/mm3 (142-424); Red Blood Count 2.61 M/mm3 (4.20-5.40); Red Cell Distribution Width-SD 54.8 fL; White Blood Count 10.6 K/mm3 (4.8-10.8)
[2025-09-03 10:31] LABS: Albumin Level 3.8 g/dl (3.5-5.0); Chloride 102 mmol/L (98-107); Potassium 4.8 mmoL/L (3.5-5.1); Sodium 136 mmol/L (136-145)
[2025-09-03 10:34] LABS: Alanine Aminotransferase 15 U/L (12-78); Albumin/Globulin Ratio 1.1 (1.1-1.8); Alkaline Phosphatase 84 U/L (38-126); Anion Gap 13.8 mEq/L (5-15); Aspartate Amino Transferase 21 U/L (14-36); Bilirubin,Total 0.2 mg/dl (0.2-1.3); Blood Urea Nitrogen 25 mg/dl (7-17); Calcium 8.8 mg/dl (8.4-10.2); Carbon Dioxide 25 mmol/L (22.0-30.0); Creatinine,Serum 1.80 mg/dl (0.52-1.04); Estimated Glomerular Filt Rate 28 ml/min (>60); GFR (African American) 34 ML/MIN (>60); Globulin 3.4 g/dL (1.3-3.2); Glucose 142 mg/dl (74-100); Total Protein,Serum 7.2 g/dl (6.3-8.2)
== END 2025-09-03 23:59 | disposition home or self-care (01) ==
LOC: LAB 09:30
PROVIDERS: PCP Family Medicine; Visit Provider Internal Medicine Medical Oncology
DX: D47.3 Essential (hemorrhagic) thrombocythemia (principal)
CPT/HCPCS: 36415; 80053; 85025

== ENCOUNTER 2025-10-05 10:36 | Outpatient (CLI) | payer MEDICARE, SELFPAY ==
[2025-10-05 11:12] LABS: Hematocrit 28.5 % (37.0-47.0); Hemoglobin 8.9 g/dL (12.2-16.2); Immature Granulocytes % 0.6 %; Mean Corpuscular HGB Conc 31.2 g/dL (31.8-35.4); Mean Corpuscular Hemoglobin 34.8 pg (27.0-31.2); Mean Corpuscular Volume 111.3 fl (81-99); Nucleated Red Blood Cells % 0 %; Platelet Count 657 K/mm3 (142-424); Red Blood Count 2.56 M/mm3 (4.20-5.40); Red Cell Distribution Width-SD 54.4 fL; White Blood Count 9.0 K/mm3 (4.8-10.8)
[2025-10-05 12:07] LABS: Alanine Aminotransferase 20 U/L (12-78); Albumin Level 4.4 g/dl (3.5-5.0); Albumin/Globulin Ratio 1.4 (1.1-1.8); Alkaline Phosphatase 80 U/L (38-126); Anion Gap 13.1 mEq/L (5-15); Aspartate Amino Transferase 27 U/L (14-36); Bilirubin,Total 0.4 mg/dl (0.2-1.3); Blood Urea Nitrogen 21 mg/dl (7-17); Calcium 9.5 mg/dl (8.4-10.2); Carbon Dioxide 26 mmol/L (22.0-30.0); Chloride 101 mmol/L (98-107); Creatinine,Serum 1.70 mg/dl (0.52-1.04); Estimated Glomerular Filt Rate 30 ml/min (>60); GFR (African American) 36 ML/MIN (>60); Globulin 3.1 g/dL (1.3-3.2); Glucose 93 mg/dl (74-100); Potassium 5.1 mmoL/L (3.5-5.1); Sodium 135 mmol/L (136-145); Total Protein,Serum 7.5 g/dl (6.3-8.2)
== END 2025-10-05 23:59 | disposition home or self-care (01) ==
LOC: LAB 10:37
PROVIDERS: PCP Family Medicine; Visit Provider Internal Medicine Medical Oncology
DX: D47.3 Essential (hemorrhagic) thrombocythemia (principal)
CPT/HCPCS: 36415; 80053; 85025

== ENCOUNTER 2025-11-02 09:54 | Outpatient (CLI) | payer MEDICARE, SELFPAY ==
[2025-11-02 10:12] LABS: Hematocrit 27.5 % (37.0-47.0); Hemoglobin 9.1 g/dL (12.2-16.2); Immature Granulocytes % 0.8 %; Mean Corpuscular HGB Conc 33.1 g/dL (31.8-35.4); Mean Corpuscular Hemoglobin 36.5 pg (27.0-31.2); Mean Corpuscular Volume 110.4 fl (81-99); Nucleated Red Blood Cells % 0 %; Platelet Count 587 K/mm3 (142-424); Red Blood Count 2.49 M/mm3 (4.20-5.40); Red Cell Distribution Width-SD 53.1 fL; White Blood Count 9.0 K/mm3 (4.8-10.8)
== END 2025-11-02 23:59 | disposition home or self-care (01) ==
LOC: LAB 09:55
PROVIDERS: PCP Family Medicine; Visit Provider Internal Medicine Medical Oncology
DX: D47.3 Essential (hemorrhagic) thrombocythemia (principal)
CPT/HCPCS: 36415; 85025